=== PATIENT | male | born 1960 | race Caucasian/White ===

== ENCOUNTER 2021-12-06 14:13 | Inpatient (IN) | payer OTHER, SELFPAY ==
[2021-12-06] VITALS (7 sets, daily range): BP systolic 128–143; BP diastolic 69–80; PULSE 82–103; RESP 16–19; TEMP 36.8–38.4; O2SAT 95–98; BMI 25.2
--- NOTE | ~2021-12-06 | CT_ITS ---
EXAMINATION: CT ABDOMEN AND PELVIS WITHOUT CONTRAST CLINICAL INFORMATION: Abnormal liver function tests. Evaluate liver mass. Elevated WBC. COMPARISON: CT chest from 12/06/2021 TECHNIQUE: Multidetector volumetric imaging was performed from the superior aspect of the liver through the pubic symphysis. Sagittal and coronal reformatted images were obtained on the technologist's workstation. This CT examination was performed using dose optimization techniques as appropriate, variously including the following: *Automated exposure control *Adjustment of mA and/or kV according to patient size (this includes techniques or standardized protocols for targeted exams where dose is matched to indication/reason for exam; i.e. extremities or head) *Use of iterative reconstruction technique DLP: 498 mGy-cm FINDINGS: LUNG BASES: Subsegmental atelectasis in the visualized left lower lobe. There are groundglass and patchy opacities in the left lower lobe. Trace left pleural effusion is present. There is mild smooth thickening of interlobular septa in the visualized lung bases. LIVER, GALLBLADDER, AND BILIARY TREE: Liver has normal size and contour. A nonspecific hypodense lesion in the right hepatic lobe measures up to 3.5 cm. In a patient with history of liver function test abnormalities and leukocytosis, a liver abscess would be suspected. A small, 0.5 cm hypodense focus in the central liver likely represents a cyst. No other liver lesions are seen on this examination performed without intravenous contrast. The gallbladder is normal. No dilated bile ducts. PANCREAS: Unremarkable. SPLEEN: Unremarkable. ADRENAL GLANDS: Unremarkable. KIDNEYS AND URETERS: There is excretion of iodinated contrast into the nondilated collecting systems from the recent CT chest angiography examination. Kidneys are normal in size. No renal mass or hydronephrosis. BLADDER: Urinary bladder has normal wall thickness. GASTROINTESTINAL TRACT: Stomach is underdistended. No dilated bowel loops. The appendix is normal. Multiple diverticula of the colon. The subtle haziness of pericolonic fat at the proximal sigmoid colon is too subtle for a confident/definitive diagnosis of acute diverticulitis. Query if there is any left lower quadrant pain. No abdominal free fluid. No pneumoperitoneum. ABDOMINAL WALL: A very small fat-containing umbilical hernia is present. LYMPH NODES: No pathologic sized lymph nodes. VASCULAR: Mild atherosclerosis of the abdominal aorta without aneurysm. PELVIC VISCERA: Prostate gland is mildly enlarged. OSSEOUS STRUCTURES: Multilevel degenerative disc disease of the visualized lower thoracic and lumbar spine with exception of L4-L5. There is L5 spondylolysis with grade 2 anterolisthesis of L5 on S1. CT/CT abdomen pelvis wo con IMPRESSION: * There is atelectasis at lung bases. The groundglass and patchy opacity of left lower lobe (with trace left pleural effusion) are suspicious for pneumonia. * Mild interstitial edema in the visualized lung bases. * Nonspecific 3.5 cm hypodense lesion in the liver is present. Given history of leukocytosis and abnormal liver function tests, a liver abscess is suspected. * There is extensive diverticulosis of the colon. Subtle pericolonic fat stranding is noted at the proximal sigmoid colon. If the patient has left lower abdominal pain, mild acute diverticulitis would be suspected.
--- NOTE | ~2021-12-06 | CT_ITS ---
EXAMINATION: CT ANGIOGRAM OF THE CHEST WITH CONTRAST (CT PULMONARY ANGIOGRAM FOR PE) CLINICAL INFORMATION: Elevated D-dimer test and shortness of breath. COMPARISON: Chest radiograph from 12/06/2021 TECHNIQUE: Prior to contrast administration, noncontrast localization images were obtained. Subsequently, multidetector volumetric imaging was performed from the thoracic inlet to below the diaphragms following the administration of 65 mL Omnipaque 350 intravenous contrast. No contrast reaction reported. Sagittal, coronal, and MIP oblique sagittal reformatted images were obtained on the CT workstation, uploaded to PACS, and reviewed. This CT examination was performed using dose optimization techniques as appropriate, variously including the following: *Automated exposure control *Adjustment of mA and/or kV according to patient size (this includes techniques or standardized protocols for targeted exams where dose is matched to indication/reason for exam; i.e. extremities or head) *Use of iterative reconstruction technique DLP: Total exam dose-length product 335 mGy-cm FINDINGS: LUNGS AND PLEURA: Trachea and central airways are widely patent and normal in caliber. Linear, streaky opacities of atelectasis are present in both lower lobes and in the inferior lingula. The asymmetric groundglass opacity in the left lower lobe is suspicious for pneumonitis, and trace left pleural effusion is present. No pulmonary edema. No pneumothorax. QUALITY OF STUDY/CONTRAST BOLUS: Satisfactory (with main pulmonary artery achieving attenuation of 205 HU) CARDIOVASCULAR: The pulmonary arteries are normal in size. There are no embolic filling defects identified in the main or lobar pulmonary arteries. The more peripheral vessels are difficult to evaluate due to respiratory motion, particularly on images through the lower lobes. Although no emboli are seen, the examination is regarded as limited. The heart size is normal. No pericardial effusion. Thoracic aorta has mild atherosclerotic calcific effusion. No aortic aneurysm or dissection. MEDIASTINUM/LOWER NECK: No mediastinal mass. The thyroid gland is unremarkable. There appears to be a very small sliding-type hiatal hernia of the stomach. LYMPHATICS: No pathologic sized axillary, hilar or mediastinal lymph nodes. UPPER ABDOMEN: No contrast reflux into the inferior vena cava. A nonspecific 3.3 cm hypodense lesion in the right lobe of the liver has central attenuation of 28 Hounsfield units. This is not a simple cyst. Adrenal glands are normal. There are diverticula of the partially visualized colon. Small, 0.4 cm calyceal stone in the upper pole of the left kidney. OSSEOUS STRUCTURES: Multilevel discovertebral degenerative change of the visualized lower cervical, thoracic and upper lumbar spine. There is facet arthropathy, disc degenerative change and 0.5 cm of anterolisthesis of C7 on T1. No suspicious bone lesions. CT/CT angio chest PE protocol IMPRESSION: * Although no pulmonary emboli are seen, the evaluation of peripheral vessels is limited due to respiratory motion on multiple images, particularly those through the lower lobes. * The asymmetric patchy groundglass opacity in the left lower lobe could be caused by atelectasis or infectious pneumonitis. A trace left pleural effusion is present. * Nonspecific 3.3 cm hypodense lesion is present in the right lobe of the liver. Although this could represent hepatic mass, an abscess would be included in the differential in this patient with leukocytosis. MR imaging of the liver without and with IV contrast would be helpful for further characterization.
--- NOTE | ~2021-12-06 | CT_ITS ---
PROCEDURE: CT GUIDED DRAINAGE, LIVER ABSCESS CLINICAL INFORMATION: Liver abscess on recent CT abdomen and MRI abdomen exam. COMPARISON: CT abdomen and pelvis 12/06/2021 and MRI abdomen 12/07/2021. TECHNIQUE: Following explaining CT fluoroscopy-guided right liver abscess, aspiration procedure, benefits and risks, a written consent was obtained. Patient was placed supine on the CT fluoroscopy table and preliminary CT imaging was obtained. An optimal site was selected along the right lateral upper abdomen and marked. The marked site was cleaned and draped in usual sterile manner. 1% lidocaine was injected at the marked site. Through a small skin incision, a 5 Welsh Yueh catheter was advanced from the skin and through the right hepatic lobe into the hypodense collection. On reaching the periphery of the collection, there was sabas aspiration seen. The stylet was withdrawn; however, no aspiration could be performed with a syringe. The stylet was reintroduced and further aspiration was continued through different segments of the hypodensity. After obtaining almost all pus, no more pus could be aspirated, the catheter was withdrawn and complete hemostasis was achieved. No drainage catheter was placed due to projected difficulty in advancing guidewire through the collapsed 5 Welsh sheath. Also by the end of the procedure, the hypodensity in the right hepatic lobe was significantly improved and reduced in size. Complete hemostasis was achieved at the puncture site. Sterile dressing was applied postprocedure. This CT examination was performed using dose optimization techniques as appropriate, variously including the following: *Automated exposure control *Adjustment of mA and/or kV according to patient size (this includes techniques or standardized protocols for targeted exams where dose is matched to indication/reason for exam; i.e. extremities or head) *Use of iterative reconstruction technique 2 mg of IV Versed and 50 mcg of IV fentanyl was advanced during the exam and patient monitored for [address]. [address] imaging, there is a moderate-sized hypodense mass in the right hepatic lobe as described on the prior CT abdomen and MRI abdomen exam. CT fluoroscopy-guided placement of a 5 Welsh Yueh catheter into the abscess. A syringe was attached to the catheter with stylet in place. A syringe was moved in different directions when in the center of the lesion to obtain and drain as much as possible. Postprocedure the needle was withdrawn and complete hemostasis was achieved at the puncture site. Sterile dressing applied postprocedure. Repeat CT imaging was performed. DLP: 396 mGy-cm FINDINGS: On preliminary x-ray imaging, there is no radiopaque calculi seen in the right upper quadrant. CT-guided right hepatic lobe aspiration was performed in a sterile fashion. Approximately 10 mL of pus was collected in 2 test tubes and sent to lab. Post liver aspiration, the right hepatic lobe lesion is smaller. CT/CT guided aspiration liver IMPRESSION: Successful CT fluoroscopy-guided right hepatic lobe abscess aspiration and near-complete drainage.
--- NOTE | ~2021-12-06 | XR_ITS ---
EXAMINATION: XR CHEST CLINICAL INFORMATION: Shortness of breath. COMPARISON: None TECHNIQUE: Portable AP upright view of the chest was obtained. FINDINGS: The cardiac silhouette is not enlarged. There appears to be a small hiatal hernia. The lung volumes are decreased with mild prominence of the central pulmonary vasculature. No Cherelle B-lines or pleural effusions identified. No focal consolidation. Surgical anchors are seen in the left humeral head. XR/XR chest 1V IMPRESSION: Low lung volumes. Possible mild pulmonary edema edema, difficult to evaluate on this exam. No focal consolidation or pleural effusion. Consider follow-up PA and lateral chest radiograph.
--- NOTE | ~2021-12-06 | XR_ITS ---
EXAMINATION: XR CHEST CLINICAL INFORMATION: Suspected pulmonary edema. COMPARISON: None TECHNIQUE: Lateral view of the chest was obtained. Total of 2 images were obtained. FINDINGS: Lateral view only of the chest shows possible subtle airspace disease at right lung base posteriorly. XR/XR chest 1V IMPRESSION: Possible subtle airspace disease at right lung base posteriorly.
--- NOTE | ~2021-12-06 | MR_ITS ---
EXAMINATION: MR ABDOMEN WITHOUT AND WITH CONTRAST CLINICAL INFORMATION: Liver abscess questioned on previous CT COMPARISON: CT dated 12/06/2021 TECHNIQUE: MR abdomen was performed without and with use of 6 mL intravenous Gadavist gadolinium contrast. Postcontrast images are performed in multiphase dynamic sequences. Imaging was performed in 3 planes. FINDINGS: LUNG BASES: Again seen is dependent parenchymal consolidation within left lower lobe, better seen on the prior CT. Trace bilateral pleural effusions. LIVER, GALLBLADDER, AND BILIARY TREE: Liver is normal in size, contour and morphology. As seen on the prior CT, there is a T2 bright peripherally enhancing, centrally nonenhancing structure within hepatic segment 8 measuring 4.2 x 3.8 x 4.0 cm. There is associated thrombus within the right hepatic vein, as well as hepatic veins peripheral to the abnormality within hepatic segments 7 and 8 (see najera images). There is associated perfusional abnormality within the right lobe of liver which demonstrates more patchy enhancement during the hepatic arterial and portal venous phases and more generalized hyperintensity during the delayed phase. There is a 5 mm cyst superior aspect of the caudate. No intra or extrahepatic biliary dilatation. Tiny stone present within the dependent gallbladder. PANCREAS: Unremarkable. SPLEEN: Normal. ADRENAL GLANDS: Normal. KIDNEYS AND URETERS: The kidneys are normal in size, shape, and enhance symmetrically. No hydronephrosis. No perinephric stranding. GASTROINTESTINAL TRACT: No bowel obstruction. No ascites or fluid collection. Diverticulosis coli. ABDOMINAL WALL: No significant hernia is appreciated. LYMPH NODES: No lymphadenopathy. VASCULAR: Patent portal vein. As discussed above, there is bland thrombus within the right hepatic vein leading from the above-described abnormality within the right lobe of liver, as well as lack of enhancement and presumptive thrombosis of hepatic venules peripheral to the abnormality within hepatic segments 7 and 8 OSSEOUS STRUCTURES: Marrow signal normal. MR/MR abdomen wo/w con IMPRESSION: * There is a 4.2 cm peripherally enhancing T2 bright lobulated abnormality within the right lobe of liver suspicious for abscess given the T2 hyperintensity and accompanying thrombus within the right hepatic vein and hepatic venules peripheral to the abnormality. * There is associated perfusional abnormality throughout the right liver likely related to hepatic venous congestion from the aforementioned local hepatic venous thrombus, as well as inflammatory hyperemia.
[2021-12-06] MEDS: Acetaminophen 325 MG TABLET 650 MG PO (14:49)
--- NOTE | 2021-12-06 15:02 | PC.NURSE ---
Unable to attain SpO2 reading on patient in triage. Charge nurse made aware patient brought back to room.
[2021-12-06 15:07] LABS: COVID-19 Test Negative (Negative)
--- NOTE | 2021-12-06 16:04 | ECG_ITS ---
Test Reason : DIZZINESS Blood Pressure : / mmHG Vent. Rate : 093 BPM Atrial Rate : 093 BPM P-R Int : 136 ms QRS Dur : 076 ms QT Int : 330 ms P-R-T Axes : 035 008 002 degrees QTc Int : 410 ms Normal sinus rhythm Normal ECG No previous ECGs available Referred By: Ariadna Gamez Electronically Signed By:ZACK GARZA
[2021-12-06] MEDS: 0.9 % Sodium Chloride 1,000 ML 999 ML IV ×2 (16:17→19:59)
[2021-12-06 16:18] LABS: Appearance Urine CLEAR; Color Urine YELLOW; Glucose Urine UA NEG (NEG); Leukocyte Esterase Urine NEG (NEG); Nitrite Urine NEG (NEG); PH 5.5 (5.0-8.0); Specific Gravity - Urine 1.025 (1.005-1.025); UACC Culture Trigger NO; Urine Blood NEG (NEG); Urine Ketones NEG (NEG); Urine Protein 1+ MG/DL (NEG-TRACE)
[2021-12-06 16:19] LABS: Basophils Absolute Auto 0.1 X10*3/uL (0.0-0.2); Basophils Percent Auto 0.3 % (0-2); Eosinophils Percent Auto 0.1 % (0-4); Hemoglobin 14.5 g/dl (14.0-18.0); Imm Gran Abs Auto 0.16 X10*3/uL (0.00-0.03); Imm Gran Pct Auto 0.9 % (0.0-0.4); Lymphocytes Absolute Auto 0.6 X10*3/uL (1.2-4.9); Lymphocytes Percent Auto 3.1 % (20-40); MANUAL DIFF FLAG SCAN; Mean Corpuscular HGB Conc 34.5 g/dl (31.0-36.0); Mean Corpuscular Hemoglobin 30.3 pg (27.0-33.0); Mean Corpuscular Volume 87.9 fL (80.0-98.0); Mean Platelet Volume 11.3 fL (9.4-12.4); Monocytes Absolute Auto 0.7 X10*3/uL (0.1-1.2); Monocytes Percent Auto 4.1 % (2-11); Neutrophils Absolute Auto 16.5 x10*3/uL (2.0-8.3); Neutrophils Percent Auto 91.5 % (45-73); Platelet Count 216 X10*3/uL (160-400); Red Blood Count 4.78 X10*6/uL (4.60-5.80); Red Cell Distribution Width 13.2 % (11.0-16.0); SCAN SMEAR FLAG 1
--- NOTE | 2021-12-06 16:23 | ED.GENADULT ---
HPI - General Adult General Chief complaint: General Medical <PARTH Garcia Last Filed: 12/06/21 20:02> Stated complaint: Chills/Fever/Weakness <PARTH Garcia Last Filed: 12/06/21 20:02> Time Seen by Provider: 12/06/21 15:25 <PARTH Garcia Last Filed: 12/06/21 20:02> Source: patient <PARTH Garcia Last Filed: 12/06/21 20:02> Mode of arrival: ambulatory <PARTH Garcia Last Filed: 12/06/21 20:02> History of Present Illness HPI narrative: 61-year-old male with no significant past medical history presenting to the ED complaining of lightheadedness, generalized fatigue/weakness, malaise, chills, headache, low-grade fever, SOB x5 days. Reports chest discomfort worse with deep breathing, and decreased p.o. intake. Denies chest pain, abdominal pain, vomiting, diarrhea, pedal edema, recent travel, suspicious food intake, sick contacts <PARTH Garcia Last Filed: 12/06/21 20:02> Onset (ago): day(s) <PARTH Garcia Last Filed: 12/06/21 20:02> Related Data Home medications: Home Medications Medication Instructions Recorded Confirmed atorvastatin 80 mg tablet 80 mg PO DAILY 12/06/21 hydrochlorothiazide 25 mg tablet 25 mg PO DAILY 12/06/21 lisinopril 10 mg tablet 10 mg PO DAILY 12/06/21 tamsulosin 0.4 mg capsule 0.4 mg PO DAILY 12/06/21 <PARTH Garcia Last Filed: 12/06/21 20:02> Allergies/adverse reactions: Allergies Allergy/AdvReac Type Severity Reaction Status Date / Time No Known Allergies Allergy Verified 12/06/21 14:37 <PARTH Garcia Last Filed: 12/06/21 20:02> Review of Systems Review of Systems: Constitutional: +Low grade Fever, + Chills, + Fatigue, + Malaise ENT/Mouth: No Ear Pain, No Nasal Congestion, No Sinus Pain, No Hoarseness, No sore throat, No Rhinorrhea, No Swallowing Difficulty Eyes: No Eye Pain, No Swelling, No Redness Cardiovascular: No Chest Pain, + SOB, No Dyspnea on Exertion, No Orthopnea, No Edema, No Palpitations Respiratory: No Cough, No Sputum, No Dyspnea Gastrointestinal: + Nausea, No Vomiting, No Diarrhea, No Constipation, No Abdominal pain Genitourinary: No Dysuria, No Urinary Frequency, No Hematuria, No Flank Pain, No Urinary Flow Changes Musculoskeletal: No joint pain, + Myalgias, No Joint Swelling Skin: No Skin Lesions, No rash Neuro: +Weakness, No Numbness, No Paresthesias, No Loss of Consciousness, +lightheaded, + Headache <PARTH Garcia - Last Filed: 12/06/21 20:02> Yes all other systems are reviewed and are negative <PARTH Garcia - Last Filed: 12/06/21 20:02> Neurologic: Denies Abnormal speech present <PARTH Garcia - Last Filed: 12/06/21 20:02> FOR[facility], [facility] Past Medical History Attestation statement: The following information was validated with the patient. <PARTH Garcia - Last Filed: 12/06/21 20:02> Social History Social History: Social History Advance Directives: No Advance Directives Information Provided: No <PARTH Garcia - Last Filed: 12/06/21 20:02> Physical Exam ED Vital Signs: Vital Signs - 24 hr 12/06/21 14:35 12/06/21 16:52 12/06/21 16:53 Temperature 98.2 F Pulse Rate 87 95 103 H Respiratory Rate 19 Blood Pressure 143/74 H 140/70 H 128/73 Pulse Oximetry 12/06/21 16:54 12/06/21 19:31 Temperature 101.2 F H Pulse Rate 97 84 Respiratory Rate 16 Blood Pressure 130/69 128/76 Pulse Oximetry 98 BMI result Body Mass Index 25.2 <PARTH Garcia - Last Filed: 12/06/21 20:02> Vital Signs - 24 hr 12/06/21 14:35 12/06/21 16:52 12/06/21 16:53 Temperature 98.2 F Pulse Rate 87 95 103 H Respiratory Rate 19 Blood Pressure 143/74 H 140/70 H 128/73 Pulse Oximetry 12/06/21 16:54 12/06/21 19:31 Temperature 101.2 F H Pulse Rate 97 84 Respiratory Rate 16 Blood Pressure 130/69 128/76 Pulse Oximetry 98 BMI result Body Mass Index 25.2 <Mik Pulido MD - Last Filed: 12/06/21 21:41> Const General: cooperative, healthy appearing, no acute distress, alert and awake <PARTH Garcia - Last Filed: 12/06/21 20:02> Orientation/consciousness: patient oriented x3 <PARTH Garcia - Last Filed: 12/06/21 20:02> Limitations: no limitations <PARTH Garcia - Last Filed: 12/06/21 20:02> HENMT Head: Yes normal to inspection and Yes atraumatic <PARTH Garcia - Last Filed: 12/06/21 20:02> Ears: hearing grossly normal bilaterally <PARTH Garcia - Last Filed: 12/06/21 20:02> General nose exam: Normal external nose present <PARTH Garcia - Last Filed: 12/06/21 20:02> Face and sinus: Yes normal facial exam <PARTH Garcia - Last Filed: 12/06/21 20:02> Throat: Yes posterior oropharynx normal, Yes tonsils normal and Yes uvula midline <PARTH Garcia - Last Filed: 12/06/21 20:02> Eyes General: appearance normal, both eyes and all related structures <PARTH Garcia - Last Filed: 12/06/21 20:02> Pupils: Equal, round and reactive pupils present <PARTH Garcia - Last Filed: 12/06/21 20:02> EOM: EOMs intact bilaterally <PARTH Garcia - Last Filed: 12/06/21 20:02> Neck Neck: Yes normal visual inspection and Yes no meningeal signs <PARTH Garcia - Last Filed: 12/06/21 20:02> Resp Effort & Inspection: normal respiratory effort and no respiratory distress <PARTH Garcia - Last Filed: 12/06/21 20:02> Auscultation: clear to auscultation bilaterally, no rales, no rhonchi and no wheezes <Ariadna Gamez PA - Last Filed: 12/06/21 20:02> Cardio Rate: regular rate <Ariadna Gamez PA - Last Filed: 12/06/21 20:02> Heart sounds: S1 normal heart sound present and S2 normal heart sound present <Ariadna Gamez PA - Last Filed: 12/06/21 20:02> GI Inspection: Yes normal to inspection <Ariadna Gamez PA - Last Filed: 12/06/21 20:02> Palpation (GI): Soft to palpation, nontender, no guarding and not rigid <Ariadna Gamez PA - Last Filed: 12/06/21 20:02> General: Yes no CVA tenderness <Ariadna Gamez PA - Last Filed: 12/06/21 20:02> Back/Spine/Pelvis Back: no CVA tenderness <Ariadna Gamez PA - Last Filed: 12/06/21 20:02> Skin Rashes: no rashes <Ariadna Gamez PA - Last Filed: 12/06/21 20:02> Wounds: no wounds <Ariadna Gamez PA - Last Filed: 12/06/21 20:02> Neuro General: patient oriented x3, gait normal, tone normal, moves all extremities, no meningeal signs, no focal motor deficits and CN's II-XI intact bilaterally <Ariadna Gamez PA - Last Filed: 12/06/21 20:02> Cranial nerves: Yes CN's II-XII intact bilaterally, Yes Equal, round and reactive pupils present and Yes Bilaterally intact EOM present <Ariadna Gamez PA - Last Filed: 12/06/21 20:02> Cognition (Neuro): normal cognition <Ariadna Gamez PA - Last Filed: 12/06/21 20:02> Speech: No Abnormal speech present <Ariadna Gamez PA - Last Filed: 12/06/21 20:02> Gait exam (Neuro): Normal gait present <Ariadna Gamez PA - Last Filed: 12/06/21 20:02> Extrem General: Yes normal to inspection and Yes no pedal edema <PARTH Garcia - Last Filed: 12/06/21 20:02> Course Course Course Narrative: XR chest 1V IMPRESSION: Low lung volumes. Possible mild pulmonary edema edema, difficult to evaluate on this exam. No focal consolidation or pleural effusion. Consider follow-up PA and lateral chest radiograph. > will obtain PA and lateral -COVID negative -1654--leukocytosis of 18.0, BUN of 28 > likely from dehydration, AST/ALT acutely elevated. Alk-phos elevated. Lactic/blood cultures ordered -troponin 9.1 > will obtain through repeat -D-dimer elevated to 812 >> will obtain CTA to r/o PE XR chest 1V IMPRESSION: Possible subtle airspace disease at right lung base posteriorly. >> infection now suspected. Empiric Rocephin/Azithromycin ordered -1948--patient spiked fever to 101.2. IV Toradol ordered -Flagyl added for broader coverage -ED care transferred to Dr. Pulido pending CT results and anticipated admission <PARTH Garcia - Last Filed: 12/06/21 20:02> Medical Decision Making MDM Narrative Medical decision making narrative: 61-year-old male with no significant past medical history presenting to the ED complaining of lightheadedness, generalized fatigue/weakness, malaise, chills, headache, low-grade fever, SOB x5 days. Reports chest discomfort worse with deep breathing, and decreased p.o. intake. On exam vital signs stable, NAD/nontoxic appearing, exam nonfocal, lungs CTA. Concern for viral syndrome/COVID-19 vs metabolic abnormalities vs ?PE vs infectious etiology. Unlikely ACS Plan: EKG, labs, UA, CXR, IVF, orthostatics, re-evaluate Low concern for severe sepsis <PARTH Garcia - Last Filed: 12/06/21 20:02> 61-year-old male with no significant past medical history presenting to the ED complaining of lightheadedness, generalized fatigue/weakness, malaise, chills, headache, low-grade fever, SOB x5 days. Reports chest discomfort worse with deep breathing, and decreased p.o. intake. On exam vital signs stable, NAD/nontoxic appearing, exam nonfocal, lungs CTA. Concern for viral syndrome/COVID-19 vs metabolic abnormalities vs ?PE vs infectious etiology. Unlikely ACS Plan: EKG, labs, UA, CXR, IVF, orthostatics, re-evaluate Low concern for severe sepsis 21:40 patient seen and re-evaluated healthy % with history of hypertension came to the hospital for low-grade fever and chills and dry cough with right-sided lung pain taking a deep breath for last 4 days workup showed leukocytosis pneumonitis in the left side CTA chest negative for PE there is a lesion in the right hepatic lobe about 3 cm etiology not clear possible an abscess patient denies any recent travel no significant abdominal pain will admit patient for IV antibiotics and hydration further evaluation <Mik Pulido MD - Last Filed: 12/06/21 21:41> Medical Records Medical records reviewed: Yes I reviewed the patient's medical records. <PARTH Garcia - Last Filed: 12/06/21 20:02> Lab Data Lab results reviewed: Yes I reviewed the patient's lab results. <PARTH Garcia - Last Filed: 12/06/21 20:02> Result diagrams: : 12/06/21 16:10 12/06/21 16:10 <PARTH Garcia - Last Filed: 12/06/21 20:02> Labs: Lab Results 12/06/21 12/06/21 12/06/21 Range/Units 14:43 16:10 16:10 WBC 18.0 H (4.8-10.8) X10*3/uL RBC 4.78 (4.60-5.80) X10*6/uL Hgb 14.5 (14.0-18.0) g/dl Hct 42.0 (42.0-52.0) % MCV 87.9 (80.0-98.0) fL MCH 30.3 (27.0-33.0) pg MCHC 34.5 (31.0-36.0) g/dl RDW 13.2 (11.0-16.0) % Plt Count 216 (160-400) X10*3/uL MPV 11.3 (9.4-12.4) fL Immature Gran % (Auto) 0.9 H (0.0-0.4) % Neut % (Auto) 91.5 H (45-73) % Lymph % (Auto) 3.1 L (20-40) % [place] % (Auto) 4.1 (2-11) % Eos % (Auto) 0.1 (0-4) % Baso % (Auto) 0.3 (0-2) % Lymph # (Auto) 0.6 L (1.2-4.9) X10*3/uL [place] # (Auto) 0.7 (0.1-1.2) X10*3/uL Eos # (Auto) 0.0 (0.0-0.4) X10*3/uL Baso # (Auto) 0.1 (0.0-0.2) X10*3/uL Abs Immat Gran (auto) 0.16 H (0.00-0.03) X10*3/uL Absolute Neuts (auto) 16.5 H (2.0-8.3) x10*3/uL Absolute Nucleated RBC 0.000 (0.0-0.012) X10*3/uL Nucleated RBC % (auto) 0.0 (0.0-0.2) /100WBC Smear Tech's Comments VERIFIED D-Dimer High Sensitivty NG/ML Sodium 138 (135-145) mmol/L Potassium 3.7 (3.3-5.1) mmol/L Chloride 106 (96-108) mmol/L Carbon Dioxide 18 L (22-29) mmol/L Anion Gap 18 (12-20) BUN 28 H (9-16) mg/dL Creatinine 1.21 (0.5-1.4) mg/dL Estim Creat Clear Calc 52.3 Estimated GFR > 60 Random Glucose 118 H (60-115) mg/dL Lactic Acid (0.5-2.0) mmol/L Calcium 9.0 (8.4-10.2) mg/dL Magnesium 2.3 (1.6-2.6) mg/dL Total Bilirubin 0.9 (0.0-1.0) mg/dL Direct Bilirubin 0.4 (0.0-0.5) mg/dL AST 120 H (5-37) U/L ALT 144 H (0-40) U/L Alkaline Phosphatase 209 H (39-117) U/L Troponin I High Sens (<3.5-35.0) ng/L B-Natriuretic Peptide (<100) pg/mL Total Protein 6.0 L (6.5-8.0) g/dL Albumin 3.3 L (3.5-5.0) g/dL Lipase 10 (8-78) U/L Urine Color Urine Appearance Urine pH (5.0-8.0) Ur Specific [place] (1.005-1.025) Urine Protein (NEG-TRACE) MG/DL Urine Glucose (UA) (NEG) MG/DL Urine Ketones (NEG) MG/DL Urine Blood (NEG) Urine Nitrite (NEG) Ur Leukocyte Esterase (NEG) Urine RBC (0) /HPF Urine WBC (0-4) /HPF Ur Squamous Epith Cells /LPF Amorphous Sediment /LPF Urine Bacteria /LPF Epithelial Casts /LPF Hyaline Casts /LPF Granular Casts /LPF Urine Mucus /LPF COVID-19 (DAYA) Negative (Negative) COVID-19 Clin Com See Note 12/06/21 12/06/21 12/06/21 Range/Units 16:10 16:10 16:10 WBC (4.8-10.8) X10*3/uL RBC (4.60-5.80) X10*6/uL Hgb (14.0-18.0) g/dl Hct (42.0-52.0) % MCV (80.0-98.0) fL MCH (27.0-33.0) pg MCHC (31.0-36.0) g/dl RDW (11.0-16.0) % Plt Count (160-400) X10*3/uL MPV (9.4-12.4) fL Immature Gran % (Auto) (0.0-0.4) % Neut % (Auto) (45-73) % Lymph % (Auto) (20-40) % [place] % (Auto) (2-11) % Eos % (Auto) (0-4) % Baso % (Auto) (0-2) % Lymph # (Auto) (1.2-4.9) X10*3/uL [place] # (Auto) (0.1-1.2) X10*3/uL Eos # (Auto) (0.0-0.4) X10*3/uL Baso # (Auto) (0.0-0.2) X10*3/uL Abs Immat Gran (auto) (0.00-0.03) X10*3/uL Absolute Neuts (auto) (2.0-8.3) x10*3/uL Absolute Nucleated RBC (0.0-0.012) X10*3/uL Nucleated RBC % (auto) (0.0-0.2) /100WBC Smear Tech's Comments D-Dimer High Sensitivty 812 NG/ML Sodium (135-145) mmol/L Potassium (3.3-5.1) mmol/L Chloride (96-108) mmol/L Carbon Dioxide (22-29) mmol/L Anion Gap (12-20) BUN (9-16) mg/dL Creatinine (0.5-1.4) mg/dL Estim Creat Clear Calc Estimated GFR Random Glucose (60-115) mg/dL Lactic Acid (0.5-2.0) mmol/L Calcium (8.4-10.2) mg/dL Magnesium (1.6-2.6) mg/dL Total Bilirubin (0.0-1.0) mg/dL Direct Bilirubin (0.0-0.5) mg/dL AST (5-37) U/L ALT (0-40) U/L Alkaline Phosphatase (39-117) U/L Troponin I High Sens 9.1 (<3.5-35.0) ng/L B-Natriuretic Peptide 26 (<100) pg/mL Total Protein (6.5-8.0) g/dL Albumin (3.5-5.0) g/dL Lipase (8-78) U/L Urine Color YELLOW Urine Appearance CLEAR Urine pH 5.5 (5.0-8.0) Ur Specific [place] 1.025 (1.005-1.025) Urine Protein 1+ H (NEG-TRACE) MG/DL Urine Glucose (UA) NEG (NEG) MG/DL Urine Ketones NEG (NEG) MG/DL Urine Blood NEG (NEG) Urine Nitrite NEG (NEG) Ur Leukocyte Esterase NEG (NEG) Urine RBC 0 (0) /HPF Urine WBC 0-2 (0-4) /HPF Ur Squamous Epith Cells 1+ /LPF Amorphous Sediment 2+ /LPF Urine Bacteria TRACE /LPF Epithelial Casts 1-4 /LPF Hyaline Casts 0-2 /LPF Granular Casts 0-2 /LPF Urine Mucus 1+ /LPF COVID-19 (DAYA) (Negative) COVID-19 Clin Com 12/06/21 12/06/21 Range/Units 17:33 17:33 WBC (4.8-10.8) X10*3/uL RBC (4.60-5.80) X10*6/uL Hgb (14.0-18.0) g/dl Hct (42.0-52.0) % MCV (80.0-98.0) fL MCH (27.0-33.0) pg MCHC (31.0-36.0) g/dl RDW (11.0-16.0) % Plt Count (160-400) X10*3/uL MPV (9.4-12.4) fL Immature Gran % (Auto) (0.0-0.4) % Neut % (Auto) (45-73) % Lymph % (Auto) (20-40) % [place] % (Auto) (2-11) % Eos % (Auto) (0-4) % Baso % (Auto) (0-2) % Lymph # (Auto) (1.2-4.9) X10*3/uL [place] # (Auto) (0.1-1.2) X10*3/uL Eos # (Auto) (0.0-0.4) X10*3/uL Baso # (Auto) (0.0-0.2) X10*3/uL Abs Immat Gran (auto) (0.00-0.03) X10*3/uL Absolute Neuts (auto) (2.0-8.3) x10*3/uL Absolute Nucleated RBC (0.0-0.012) X10*3/uL Nucleated RBC % (auto) (0.0-0.2) /100WBC Smear Tech's Comments D-Dimer High Sensitivty NG/ML Sodium (135-145) mmol/L Potassium (3.3-5.1) mmol/L Chloride (96-108) mmol/L Carbon Dioxide (22-29) mmol/L Anion Gap (12-20) BUN (9-16) mg/dL Creatinine (0.5-1.4) mg/dL Estim Creat Clear Calc Estimated GFR Random Glucose (60-115) mg/dL Lactic Acid 1.8 (0.5-2.0) mmol/L Calcium (8.4-10.2) mg/dL Magnesium (1.6-2.6) mg/dL Total Bilirubin (0.0-1.0) mg/dL Direct Bilirubin (0.0-0.5) mg/dL AST (5-37) U/L ALT (0-40) U/L Alkaline Phosphatase (39-117) U/L Troponin I High Sens 10.0 (<3.5-35.0) ng/L B-Natriuretic Peptide (<100) pg/mL Total Protein (6.5-8.0) g/dL Albumin (3.5-5.0) g/dL Lipase (8-78) U/L Urine Color Urine Appearance Urine pH (5.0-8.0) Ur Specific [place] (1.005-1.025) Urine Protein (NEG-TRACE) MG/DL Urine Glucose (UA) (NEG) MG/DL Urine Ketones (NEG) MG/DL Urine Blood (NEG) Urine Nitrite (NEG) Ur Leukocyte Esterase (NEG) Urine RBC (0) /HPF Urine WBC (0-4) /HPF Ur Squamous Epith Cells /LPF Amorphous Sediment /LPF Urine Bacteria /LPF Epithelial Casts /LPF Hyaline Casts /LPF Granular Casts /LPF Urine Mucus /LPF COVID-19 (DAYA) (Negative) COVID-19 Clin Com <PARTH Garcia - Last Filed: 12/06/21 20:02> Lab Results 12/06/21 12/06/21 12/06/21 Range/Units 14:43 16:10 16:10 WBC 18.0 H (4.8-10.8) X10*3/uL RBC 4.78 (4.60-5.80) X10*6/uL Hgb 14.5 (14.0-18.0) g/dl Hct 42.0 (42.0-52.0) % MCV 87.9 (80.0-98.0) fL MCH 30.3 (27.0-33.0) pg MCHC 34.5 (31.0-36.0) g/dl RDW 13.2 (11.0-16.0) % Plt Count 216 (160-400) X10*3/uL MPV 11.3 (9.4-12.4) fL Immature Gran % (Auto) 0.9 H (0.0-0.4) % Neut % (Auto) 91.5 H (45-73) % Lymph % (Auto) 3.1 L (20-40) % [place] % (Auto) 4.1 (2-11) % Eos % (Auto) 0.1 (0-4) % Baso % (Auto) 0.3 (0-2) % Lymph # (Auto) 0.6 L (1.2-4.9) X10*3/uL [place] # (Auto) 0.7 (0.1-1.2) X10*3/uL Eos # (Auto) 0.0 (0.0-0.4) X10*3/uL Baso # (Auto) 0.1 (0.0-0.2) X10*3/uL Abs Immat Gran (auto) 0.16 H (0.00-0.03) X10*3/uL Absolute Neuts (auto) 16.5 H (2.0-8.3) x10*3/uL Absolute Nucleated RBC 0.000 (0.0-0.012) X10*3/uL Nucleated RBC % (auto) 0.0 (0.0-0.2) /100WBC Smear Tech's Comments VERIFIED D-Dimer High Sensitivty NG/ML Sodium 138 (135-145) mmol/L Potassium 3.7 (3.3-5.1) mmol/L Chloride 106 (96-108) mmol/L Carbon Dioxide 18 L (22-29) mmol/L Anion Gap 18 (12-20) BUN 28 H (9-16) mg/dL Creatinine 1.21 (0.5-1.4) mg/dL Estim Creat Clear Calc 52.3 Estimated GFR > 60 Random Glucose 118 H (60-115) mg/dL Lactic Acid (0.5-2.0) mmol/L Calcium 9.0 (8.4-10.2) mg/dL Magnesium 2.3 (1.6-2.6) mg/dL Total Bilirubin 0.9 (0.0-1.0) mg/dL Direct Bilirubin 0.4 (0.0-0.5) mg/dL AST 120 H (5-37) U/L ALT 144 H (0-40) U/L Alkaline Phosphatase 209 H (39-117) U/L Troponin I High Sens (<3.5-35.0) ng/L B-Natriuretic Peptide (<100) pg/mL Total Protein 6.0 L (6.5-8.0) g/dL Albumin 3.3 L (3.5-5.0) g/dL Lipase 10 (8-78) U/L Urine Color Urine Appearance Urine pH (5.0-8.0) Ur Specific [place] (1.005-1.025) Urine Protein (NEG-TRACE) MG/DL Urine Glucose (UA) (NEG) MG/DL Urine Ketones (NEG) MG/DL Urine Blood (NEG) Urine Nitrite (NEG) Ur Leukocyte Esterase (NEG) Urine RBC (0) /HPF Urine WBC (0-4) /HPF Ur Squamous Epith Cells /LPF Amorphous Sediment /LPF Urine Bacteria /LPF Epithelial Casts /LPF Hyaline Casts /LPF Granular Casts /LPF Urine Mucus /LPF COVID-19 (DAYA) Negative (Negative) COVID-19 Clin Com See Note 12/06/21 12/06/21 12/06/21 Range/Units 16:10 16:10 16:10 WBC (4.8-10.8) X10*3/uL RBC (4.60-5.80) X10*6/uL Hgb (14.0-18.0) g/dl Hct (42.0-52.0) % MCV (80.0-98.0) fL MCH (27.0-33.0) pg MCHC (31.0-36.0) g/dl RDW (11.0-16.0) % Plt Count (160-400) X10*3/uL MPV (9.4-12.4) fL Immature Gran % (Auto) (0.0-0.4) % Neut % (Auto) (45-73) % Lymph % (Auto) (20-40) % [place] % (Auto) (2-11) % Eos % (Auto) (0-4) % Baso % (Auto) (0-2) % Lymph # (Auto) (1.2-4.9) X10*3/uL [place] # (Auto) (0.1-1.2) X10*3/uL Eos # (Auto) (0.0-0.4) X10*3/uL Baso # (Auto) (0.0-0.2) X10*3/uL Abs Immat Gran (auto) (0.00-0.03) X10*3/uL Absolute Neuts (auto) (2.0-8.3) x10*3/uL Absolute Nucleated RBC (0.0-0.012) X10*3/uL Nucleated RBC % (auto) (0.0-0.2) /100WBC Smear Tech's Comments D-Dimer High Sensitivty 812 NG/ML Sodium (135-145) mmol/L Potassium (3.3-5.1) mmol/L Chloride (96-108) mmol/L Carbon Dioxide (22-29) mmol/L Anion Gap (12-20) BUN (9-16) mg/dL Creatinine (0.5-1.4) mg/dL Estim Creat Clear Calc Estimated GFR Random Glucose (60-115) mg/dL Lactic Acid (0.5-2.0) mmol/L Calcium (8.4-10.2) mg/dL Magnesium (1.6-2.6) mg/dL Total Bilirubin (0.0-1.0) mg/dL Direct Bilirubin (0.0-0.5) mg/dL AST (5-37) U/L ALT (0-40) U/L Alkaline Phosphatase (39-117) U/L Troponin I High Sens 9.1 (<3.5-35.0) ng/L B-Natriuretic Peptide 26 (<100) pg/mL Total Protein (6.5-8.0) g/dL Albumin (3.5-5.0) g/dL Lipase (8-78) U/L Urine Color YELLOW Urine Appearance CLEAR Urine pH 5.5 (5.0-8.0) Ur Specific [place] 1.025 (1.005-1.025) Urine Protein 1+ H (NEG-TRACE) MG/DL Urine Glucose (UA) NEG (NEG) MG/DL Urine Ketones NEG (NEG) MG/DL Urine Blood NEG (NEG) Urine Nitrite NEG (NEG) Ur Leukocyte Esterase NEG (NEG) Urine RBC 0 (0) /HPF Urine WBC 0-2 (0-4) /HPF Ur Squamous Epith Cells 1+ /LPF Amorphous Sediment 2+ /LPF Urine Bacteria TRACE /LPF Epithelial Casts 1-4 /LPF Hyaline Casts 0-2 /LPF Granular Casts 0-2 /LPF Urine Mucus 1+ /LPF COVID-19 (DAYA) (Negative) COVID-19 Clin Com 12/06/21 12/06/21 Range/Units 17:33 17:33 WBC (4.8-10.8) X10*3/uL RBC (4.60-5.80) X10*6/uL Hgb (14.0-18.0) g/dl Hct (42.0-52.0) % MCV (80.0-98.0) fL MCH (27.0-33.0) pg MCHC (31.0-36.0) g/dl RDW (11.0-16.0) % Plt Count (160-400) X10*3/uL MPV (9.4-12.4) fL Immature Gran % (Auto) (0.0-0.4) % Neut % (Auto) (45-73) % Lymph % (Auto) (20-40) % [place] % (Auto) (2-11) % Eos % (Auto) (0-4) % Baso % (Auto) (0-2) % Lymph # (Auto) (1.2-4.9) X10*3/uL [place] # (Auto) (0.1-1.2) X10*3/uL Eos # (Auto) (0.0-0.4) X10*3/uL Baso # (Auto) (0.0-0.2) X10*3/uL Abs Immat Gran (auto) (0.00-0.03) X10*3/uL Absolute Neuts (auto) (2.0-8.3) x10*3/uL Absolute Nucleated RBC (0.0-0.012) X10*3/uL Nucleated RBC % (auto) (0.0-0.2) /100WBC Smear Tech's Comments D-Dimer High Sensitivty NG/ML Sodium (135-145) mmol/L Potassium (3.3-5.1) mmol/L Chloride (96-108) mmol/L Carbon Dioxide (22-29) mmol/L Anion Gap (12-20) BUN (9-16) mg/dL Creatinine (0.5-1.4) mg/dL Estim Creat Clear Calc Estimated GFR Random Glucose (60-115) mg/dL Lactic Acid 1.8 (0.5-2.0) mmol/L Calcium (8.4-10.2) mg/dL Magnesium (1.6-2.6) mg/dL Total Bilirubin (0.0-1.0) mg/dL Direct Bilirubin (0.0-0.5) mg/dL AST (5-37) U/L ALT (0-40) U/L Alkaline Phosphatase (39-117) U/L Troponin I High Sens 10.0 (<3.5-35.0) ng/L B-Natriuretic Peptide (<100) pg/mL Total Protein (6.5-8.0) g/dL Albumin (3.5-5.0) g/dL Lipase (8-78) U/L Urine Color Urine Appearance Urine pH (5.0-8.0) Ur Specific [place] (1.005-1.025) Urine Protein (NEG-TRACE) MG/DL Urine Glucose (UA) (NEG) MG/DL Urine Ketones (NEG) MG/DL Urine Blood (NEG) Urine Nitrite (NEG) Ur Leukocyte Esterase (NEG) Urine RBC (0) /HPF Urine WBC (0-4) /HPF Ur Squamous Epith Cells /LPF Amorphous Sediment /LPF Urine Bacteria /LPF Epithelial Casts /LPF Hyaline Casts /LPF Granular Casts /LPF Urine Mucus /LPF COVID-19 ([facility]) (Negative) COVID-19 Clin Com <Mik Pulido MD - Last Filed: 12/06/21 21:41> Discharge Plan Discharge Clinical Impression: Pneumonitis, Lesion of liver, Transaminitis, Fever <PARTH Garcia - Last Filed: 12/06/21 20:02> Patient Disposition: Admitted As Inpatient <PARTH Garcia - Last Filed: 12/06/21 20:02>
[2021-12-06 16:25] LABS: D Dimer High Sensitivity 812 NG/ML
[2021-12-06 16:37] LABS: RBC Urine 0 /HPF (0); WBC Urine 0-2 /HPF (0-4)
[2021-12-06 16:38] LABS: Bacteria Urine TRACE /LPF; Granular Casts Urine 0-2 /LPF; Hyaline Casts Urine 0-2 /LPF; Mucus Urine 1+ /LPF; SLIDE REVIEW VERIFIED; Squamous Epithelial Cell Urine 1+ /LPF
[2021-12-06 16:40] LABS: Amorphous Sediment Urine 2+ /LPF
[2021-12-06 16:41] LABS: Alanine Aminotransferase 144 U/L (0-40); Albumin Level 3.3 g/dL (3.5-5.0); Alkaline Phosphatase 209 U/L (39-117); Anion Gap 18 (12-20); Aspartate Amino Transferase 120 U/L (5-37); Bilirubin Direct 0.4 mg/dL (0.0-0.5); Bilirubin Total 0.9 mg/dL (0.0-1.0); Blood Urea Nitrogen 28 mg/dL (9-16); Carbon Dioxide 18 mmol/L (22-29); Chloride 106 mmol/L (96-108); Creatinine Clr Calc Pharmacy 52.3; Estimated Glomerular Filt Rate > 60; Glucose Random 118 mg/dL (60-115); Magnesium 2.3 mg/dL (1.6-2.6); Potassium 3.7 mmol/L (3.3-5.1); Sodium 138 mmol/L (135-145)
[2021-12-06 16:42] LABS: B Type Natriuretic Peptide 26 pg/mL (<100); Troponin-I High Sensitivity 9.1 ng/L (<3.5-35.0)
[2021-12-06 17:28] LABS: Lipase 10 U/L (8-78)
[2021-12-06] MEDS: iohexoL 350 MG/ML 100 ML INFUS..BTL 65 ML IV (17:30)
[2021-12-06 17:53] LABS: Lactic Acid 1.8 mmol/L (0.5-2.0)
[2021-12-06] MEDS: cefTRIAXone sodium 1 GM in 0.9 % Sodium Chloride 50 ML IV (18:09)
[2021-12-06] MEDS: Azithromycin 500 MG in 0.9 % Sodium Chloride 250 ML 125 MG IV (18:46)
[2021-12-06] MEDS: Ketorolac Tromethamine 15 MG/ML VIAL IVPUSH (19:59)
[2021-12-06] MEDS: metroNIDAZOLE/NS 500 MG/100 ML PIGGYBACK 100 MG IV (21:08)
--- NOTE | 2021-12-06 21:51 | PHA.MEDREC ---
Pharmacy Consult ? Medication Reconciliation Pharmacy has completed the medication reconciliation. Patient fills at [facility] in [place]. Was able to get a list of medications and had nurse confirm with patient.
--- NOTE | 2021-12-06 23:21 | PM.IMHP ---
History of Present Illness Date of Service: 12/06/21 Chief Complaint: weakness, sob, chills this is a 61-year-old male with past medical history of hypertension who presents to the hospital with complaints of chills. Patient reports that about a week ago he started developing significant chills, and progressively worsening generalized weakness. Patient reports that he has been taking Motrin and Tylenol with minimal relief. He did a COVID test at home which came out negative. He has generalized weakness, he has shortness of breath on exertion, some nausea with no vomiting. Loss of appetite. He reports pleuritic chest pain with deep breaths. And reports that when he takes a deep breath he starts coughing with no sputum production. He feels very weak. Denies any urinary symptoms, no diarrhea constipation, no lower extremity edema. Denies any recent travel outside the country, denies history of swimming in open bodies of water. On arrival to the ED patient hemodynamically stable with a temp of 101.2 degrees all otherwise vitals normal Labs are significant for WBC count of 18, BUN of 28, creatinine of 1.2, AST of 120, ALT of 144, alk-phos of 2 9, albumin 3.3, UA negative, Abdomen pelvic CT showed 80 lactase is at lung bases, ground-glass and patchy opacity of the left lower lobe with trace left pleural effusion suspicious for pneumonia. Patient also has mild interstitial edema in the visualized lung bases, he has a nonspecific 3.5 cm hypodense lesion in the liver. Concerning for liver abscess. There is also extensive diverticulosis of the colon with subtle pericolonic fat stranding at the proximal sigmoid colon Concerning for diverticulitis patient started on IV antibiotics will be admitted for further management Review of Systems Review of Systems: Yes all other systems are reviewed and are negative [facility] Medical History (Updated 12/07/21 @ 06:43 by Se Schwartz MD) Hypertension Family History (Updated 12/07/21 @ 06:42 by Se Schwartz MD) Brother Coronary artery disease Surgical History (Updated 12/07/21 @ 06:43 by Se Schwartz MD) No pertinent past surgical history Social History Advance Directives: No Advance Directives Information Provided: No Meds Allergies Allergy/AdvReac Type Severity Reaction Status Date / Time No Known Allergies Allergy Verified 12/06/21 14:37 Active Medications: Current Medications Acetaminophen (Acetaminophen 325 Mg Tablet) 650 mg PO Q6H PRN PRN Reason: Pain, Mild (Pain Scale 1-3) Atorvastatin Calcium (Atorvastatin Calcium 80 Mg Tablet) 80 mg PO DAILY [facility] Docusate Sodium (Docusate Sodium 100 Mg Capsule) 100 mg PO DAILY PRN PRN Reason: Constipation Ceftriaxone Sodium 1 gm/ (Sodium Chloride) 50 mls @ 100 mls/hr IV Q24H FRANDY Azithromycin 500 mg/ Sodium (Chloride) 250 mls @ 125 mls/hr IV Q24H FRANDY Lactated Ringer's (Lr) 1,000 mls @ 100 mls/hr IVCONT .Q10H FRANDY Ondansetron HCl (Ondansetron Hcl 4 Mg/2 Ml Vial) 4 mg IVPUSH Q8H PRN PRN Reason: Nausea and Vomiting Pharmacy Consult (Consult Rx Perform Med Rec) 1 each MISCELLANE ONCE PRN PRN Reason: Consult order Sodium Chloride (0.9 % Sodium Chloride Flush 3 Ml Syringe) 3 ml IVFLUSH QSHIFT [facility] Home Medications Medication Instructions Recorded Confirmed Last Taken Type atorvastatin 80 mg tablet 80 mg PO DAILY 12/06/21 12/06/21 Unknown History hydrochlorothiazide 25 mg tablet 25 mg PO DAILY 12/06/21 12/06/21 Unknown History lisinopril 10 mg tablet 10 mg PO DAILY 12/06/21 12/06/21 Unknown History tamsulosin 0.4 mg capsule 0.4 mg PO DAILY 12/06/21 12/06/21 Unknown History Physical Exam Vital Signs and Narrative: Vital Signs: Last Vital Signs Temp 99.6 F 12/06/21 21:57 Pulse 82 12/06/21 21:57 Resp 16 12/06/21 21:57 BP 132/80 12/06/21 21:57 Pulse Ox 95 12/06/21 21:57 BMI result Body Mass Index 25.2 Const: Other: ill appearing General: cooperative and no acute distress Orientation/consciousness: patient oriented x3 Eyes: General: appearance normal, both eyes and all related structures Pupils: Equal, round and reactive pupils present Resp: Effort & Inspection: normal respiratory effort Auscultation: clear to auscultation bilaterally Cardio: Rate: regular rate Rhythm: regular rhythm GI: Other: abdomen is soft, nontender, no rebound Palpation (GI): Soft to palpation Auscultation: normal bowel sounds Skin: General skin exam: no rashes or lesions noted Neuro: General: patient oriented x3 Cranial nerves: Yes Equal, round and reactive pupils present Cognition (Neuro): normal cognition Extrem: General: Yes normal to inspection and Yes no pedal edema Results Labs CBC and Chem 7: 12/06/21 16:10 12/06/21 16:10 Labs: Laboratory Results - last 24 hr 12/06/21 12/06/21 12/06/21 14:43 16:10 16:10 MCV 87.9 MCH 30.3 MCHC 34.5 RDW 13.2 Plt Count 216 MPV 11.3 Immature Gran % (Auto) 0.9 H Neut % (Auto) 91.5 H Lymph % (Auto) 3.1 L Howell % (Auto) 4.1 Eos % (Auto) 0.1 Baso % (Auto) 0.3 Lymph # (Auto) 0.6 L Howell # (Auto) 0.7 Eos # (Auto) 0.0 Baso # (Auto) 0.1 Abs Immat Gran (auto) 0.16 H Absolute Neuts (auto) 16.5 H Absolute Nucleated RBC 0.000 Nucleated RBC % (auto) 0.0 Smear Tech's Comments VERIFIED D-Dimer High Sensitivty Anion Gap 18 Estim Creat Clear Calc 52.3 Estimated GFR > 60 Random Glucose 118 H Lactic Acid Calcium 9.0 Magnesium 2.3 Total Bilirubin 0.9 Direct Bilirubin 0.4 AST 120 H ALT 144 H Alkaline Phosphatase 209 H B-Natriuretic Peptide Total Protein 6.0 L Albumin 3.3 L Lipase 10 Urine Color Urine Appearance Urine pH Ur Specific [place] Urine Protein Urine Glucose (UA) Urine Ketones Urine Blood Urine Nitrite Ur Leukocyte Esterase Urine RBC Urine WBC Ur Squamous Epith Cells Amorphous Sediment Urine Bacteria Epithelial Casts Hyaline Casts Granular Casts Urine Mucus COVID-19 (DAYA) Negative COVID-19 Clin Com See Note 12/06/21 12/06/21 12/06/21 16:10 16:10 16:10 MCV MCH MCHC RDW Plt Count MPV Immature Gran % (Auto) Neut % (Auto) Lymph % (Auto) Howell % (Auto) Eos % (Auto) Baso % (Auto) Lymph # (Auto) Howell # (Auto) Eos # (Auto) Baso # (Auto) Abs Immat Gran (auto) Absolute Neuts (auto) Absolute Nucleated RBC Nucleated RBC % (auto) Smear Tech's Comments D-Dimer High Sensitivty 812 Anion Gap Estim Creat Clear Calc Estimated GFR Random Glucose Lactic Acid Calcium Magnesium Total Bilirubin Direct Bilirubin AST ALT Alkaline Phosphatase B-Natriuretic Peptide 26 Total Protein Albumin Lipase Urine Color YELLOW Urine Appearance CLEAR Urine pH 5.5 Ur Specific [place] 1.025 Urine Protein 1+ H Urine Glucose (UA) NEG Urine Ketones NEG Urine Blood NEG Urine Nitrite NEG Ur Leukocyte Esterase NEG Urine RBC 0 Urine WBC 0-2 Ur Squamous Epith Cells 1+ Amorphous Sediment 2+ Urine Bacteria TRACE Epithelial Casts 1-4 Hyaline Casts 0-2 Granular Casts 0-2 Urine Mucus 1+ COVID-19 (DAYA) COVID-19 [employer] Com 12/06/21 17:33 MCV MCH MCHC RDW Plt Count MPV Immature Gran % (Auto) Neut % (Auto) Lymph % (Auto) Howell % (Auto) Eos % (Auto) Baso % (Auto) Lymph # (Auto) Howell # (Auto) Eos # (Auto) Baso # (Auto) Abs Immat Gran (auto) Absolute Neuts (auto) Absolute Nucleated RBC Nucleated RBC % (auto) Smear Tech's Comments D-Dimer High Sensitivty Anion Gap Estim Creat Clear Calc Estimated GFR Random Glucose Lactic Acid 1.8 Calcium Magnesium Total Bilirubin Direct Bilirubin AST ALT Alkaline Phosphatase B-Natriuretic Peptide Total Protein Albumin Lipase Urine Color Urine Appearance Urine pH Ur Specific [place] Urine Protein Urine Glucose (UA) Urine Ketones Urine Blood Urine Nitrite Ur Leukocyte Esterase Urine RBC Urine WBC Ur Squamous Epith Cells Amorphous Sediment Urine Bacteria Epithelial Casts Hyaline Casts Granular Casts Urine Mucus COVID-19 (DAYA) COVID-19 Clin Com Imaging Radiologist's Impressions: Impressions Chest X-Ray 12/06/21 15:12 IMPRESSION: Low lung volumes. Possible mild pulmonary edema edema, difficult to evaluate on this exam. No focal consolidation or pleural effusion. Consider follow-up PA and lateral chest radiograph. Chest X-Ray 12/06/21 16:41 IMPRESSION: Possible subtle airspace disease at right lung base posteriorly. Chest CTA 12/06/21 17:32 IMPRESSION: * Although no pulmonary emboli are seen, the evaluation of peripheral vessels is limited due to respiratory motion on multiple images, particularly those through the lower lobes. * The asymmetric patchy groundglass opacity in the left lower lobe could be caused by atelectasis or infectious pneumonitis. A trace left pleural effusion is present. * Nonspecific 3.3 cm hypodense lesion is present in the right lobe of the liver. Although this could represent hepatic mass, an abscess would be included in the differential in this patient with leukocytosis. MR imaging of the liver without and with IV contrast would be helpful for further characterization. Abdomen/Pelvis CT 12/06/21 19:44 IMPRESSION: * There is atelectasis at lung bases. The groundglass and patchy opacity of left lower lobe (with trace left pleural effusion) are suspicious for pneumonia. * Mild interstitial edema in the visualized lung bases. * Nonspecific 3.5 cm hypodense lesion in the liver is present. Given history of leukocytosis and abnormal liver function tests, a liver abscess is suspected. * There is extensive diverticulosis of the colon. Subtle pericolonic fat stranding is noted at the proximal sigmoid colon. If the patient has left lower abdominal pain, mild acute diverticulitis would be suspected. Assessment and Plan (1) Sepsis: Status: Acute (2) Pneumonia: Status: Acute (3) Lesion of liver: Status: Acute Plan this is a 61-year-old male with past medical history of hypertension who presents to the hospital with complaints of chills and generalized weakness found to have sepsis # sepsis - likely secondary to pneumonia versus liver lesions/abscess - patient febrile as well as has leukocytosis, normal lactic acid - CT chest concerning for pneumonia - COVID negative - abdominal CT showing possible liver abscess - at this time will treat with IV antibiotics - IV fluids - follow cultures # pneumonia - evidence of ground-glass opacities on chest is CT as well as abdominal CT - will treat with IV antibiotics - follow cultures - COVID negative, monitor respiratory status # lesion of the liver - likely abscess - will obtain MRI of the abdomen as recommended by Radiology - liver lesion biopsy # mild ROCCO - likely secondary to dehydration - will hold hydrochlorothiazide - follow BMP # hypertension - stable - continue lisinopril DVT prophylaxis: Lovenox Quality Stroke Does the patient have a stroke diagnosis?: No VTE Prior VTE?: No VTE Risk Level:: Medical - moderate - high VTE Device Contraindication: Treatment Not Indicated VTE Drug Contraindication: N/A - Med Ordered
--- NOTE | 2021-12-07 00:05 | PC.NURSE ---
This RN gave report to Dariela ALVAREZ in overflow unit.
[2021-12-07 00:11] LABS: Influenza A PCR NEGATIVE (Negative); Influenza B PCR NEGATIVE (Negative); Resp Syncy Virus RNA Qual PCR NEGATIVE (Negative); SARS COV2 PCR INHOUSE NEGATIVE (Negative)
[2021-12-07] MEDS: Lactated Ringers 1,000 ML 100 ML IVCONT ×3 (00:39→20:46)
[2021-12-07] MEDS: 0.9 % Sodium Chloride Flush 3 ML SYRINGE IVFLUSH ×2 (00:39→16:07)
[2021-12-07] MEDS: Acetaminophen 325 MG TABLET 650 MG PO ×2 (00:54→14:41)
--- NOTE | 2021-12-07 01:40 | PC.NURSE ---
Pt came from the ED to bed # 3 at around midnight, alert and oriented, ambulating independently to BR, denies SOB while at rest but aggravated with persistent cough, VSS, LS dim, tolerating RA, c/o mild lingering headache upon arrival, prn tylenol given, IVF of LR at 100ml/hr.
[2021-12-07 07:47] LABS: Anion Gap 10 (12-20); Blood Urea Nitrogen 25 mg/dL (9-16); Calcium 8.1 mg/dL (8.4-10.2); Carbon Dioxide 25 mmol/L (22-29); Chloride 107 mmol/L (96-108); Creatinine Clr Calc Pharmacy 63.9; Estimated Glomerular Filt Rate > 60; Glucose Random 116 mg/dL (60-115); Potassium 3.4 mmol/L (3.3-5.1); Sodium 139 mmol/L (135-145)
[2021-12-07 08:00] VITALS: BP 130/74; PULSE 72; RESP 16; O2SAT 98
--- NOTE | 2021-12-07 08:10 | HO.PM.IMPN ---
Subjective Subjective Date of Service: 12/07/21 Interval History: pneumonia ,? liver abcess Review of Systems has abd pain Also has some cough Denies any chest pain or nausea or vomiting or fever or chills. Physical Exam Vital Signs: Vital Signs: Last Vital Signs Temp 98.3 F 12/06/21 23:27 Pulse 82 12/06/21 23:27 Resp 16 12/06/21 23:27 BP 138/72 12/06/21 23:27 Pulse Ox 95 12/06/21 23:27 BMI result Body Mass Index 25.2 Appearance: Alert.? Oriented X3.? not in distress.? Eyes: Pupils equal, round and reactive to light.? Sclera nonicteric.? ENT: Pharynx normal.? Moist mucous membranes. cvs: rrr, [id number] , no murmur res: clear to auscultation ,no rhonchii or wheezing abd: no rebound or guarding ,nt, bs present. ext pulses present , no cyanosis ,Gait well balanced well coordinated. neuro: axo3 , nonfocal. Objective Data Active Medications Acetaminophen (Acetaminophen 325 Mg Tablet) 650 mg PO Q6H PRN PRN Reason: Pain, Mild (Pain Scale 1-3) Last Admin: 12/07/21 00:54 Dose: 650 mg Documented by: CHERISE Atorvastatin Calcium (Atorvastatin Calcium 80 Mg Tablet) 80 mg PO DAILY [facility] Docusate Sodium (Docusate Sodium 100 Mg Capsule) 100 mg PO DAILY PRN PRN Reason: Constipation Ceftriaxone Sodium 1 gm/ (Sodium Chloride) 50 mls @ 100 mls/hr IV Q24H [facility] Azithromycin 500 mg/ Sodium (Chloride) 250 mls @ 125 mls/hr IV Q24H [facility] Lactated Ringer's (Lr) 1,000 mls @ 100 mls/hr IVCONT .Q10H [facility] Last Admin: 12/07/21 00:39 Dose: 100 mls/hr Documented by: CHERISE Lisinopril (Lisinopril 10 Mg Tablet) 10 mg PO DAILY [facility]; Protocol Metronidazole (Metronidazole 500 Mg Tablet) 500 mg PO Q8H [facility] Ondansetron HCl (Ondansetron Hcl 4 Mg/2 Ml Vial) 4 mg IVPUSH Q8H PRN PRN Reason: Nausea and Vomiting Pharmacy Consult (Consult Rx Perform Med Rec) 1 each MISCELLANE ONCE PRN PRN Reason: Consult order Sodium Chloride (0.9 % Sodium Chloride Flush 3 Ml Syringe) 3 ml IVFLUSH QSHIFT [facility] Last Admin: 12/07/21 00:39 Dose: 3 ml Documented by: CHERISE Tamsulosin HCl (Tamsulosin Hcl 0.4 Mg Capsule) 0.4 mg PO DAILY [facility] Labs CBC & Chem 7: 12/07/21 07:13 12/07/21 07:13 Labs: Laboratory Results - last 24 hr 12/06/21 12/06/21 12/06/21 14:43 16:10 16:10 MCV 87.9 MCH 30.3 MCHC 34.5 RDW 13.2 Plt Count 216 MPV 11.3 Immature Gran % (Auto) 0.9 H Neut % (Auto) 91.5 H Lymph % (Auto) 3.1 L [place] % (Auto) 4.1 Eos % (Auto) 0.1 Baso % (Auto) 0.3 Lymph # (Auto) 0.6 L [place] # (Auto) 0.7 Eos # (Auto) 0.0 Baso # (Auto) 0.1 Abs Immat Gran (auto) 0.16 H Absolute Neuts (auto) 16.5 H Absolute Nucleated RBC 0.000 Nucleated RBC % (auto) 0.0 Smear Tech's Comments VERIFIED D-Dimer High Sensitivty Anion Gap 18 Estim Creat Clear Calc 52.3 Estimated GFR > 60 Random Glucose 118 H Lactic Acid Calcium 9.0 Magnesium 2.3 Total Bilirubin 0.9 Direct Bilirubin 0.4 AST 120 H ALT 144 H Alkaline Phosphatase 209 H B-Natriuretic Peptide Total Protein 6.0 L Albumin 3.3 L Lipase 10 Urine Color Urine Appearance Urine pH Ur Specific [place] Urine Protein Urine Glucose (UA) Urine Ketones Urine Blood Urine Nitrite Ur Leukocyte Esterase Urine RBC Urine WBC Ur Squamous Epith Cells Amorphous Sediment Urine Bacteria Epithelial Casts Hyaline Casts Granular Casts Urine Mucus COVID-19 (DAYA) Negative COVID-19 Clin Com See Note Influenza Type A (PCR) Influenza Type B (PCR) RSV RNA Qual (PCR) SARS-CoV-2 RNA (RT-PCR) 12/06/21 12/06/21 12/06/21 16:10 16:10 16:10 MCV MCH MCHC RDW Plt Count MPV Immature Gran % (Auto) Neut % (Auto) Lymph % (Auto) [place] % (Auto) Eos % (Auto) Baso % (Auto) Lymph # (Auto) [place] # (Auto) Eos # (Auto) Baso # (Auto) Abs Immat Gran (auto) Absolute Neuts (auto) Absolute Nucleated RBC Nucleated RBC % (auto) Smear Tech's Comments D-Dimer High Sensitivty 812 Anion Gap Estim Creat Clear Calc Estimated GFR Random Glucose Lactic Acid Calcium Magnesium Total Bilirubin Direct Bilirubin AST ALT Alkaline Phosphatase B-Natriuretic Peptide 26 Total Protein Albumin Lipase Urine Color YELLOW Urine Appearance CLEAR Urine pH 5.5 Ur Specific [place] 1.025 Urine Protein 1+ H Urine Glucose (UA) NEG Urine Ketones NEG Urine Blood NEG Urine Nitrite NEG Ur Leukocyte Esterase NEG Urine RBC 0 Urine WBC 0-2 Ur Squamous Epith Cells 1+ Amorphous Sediment 2+ Urine Bacteria TRACE Epithelial Casts 1-4 Hyaline Casts 0-2 Granular Casts 0-2 Urine Mucus 1+ COVID-19 ([facility]A) COVID-19 Clin Com Influenza Type A (PCR) Influenza Type B (PCR) RSV RNA Qual (PCR) SARS-CoV-2 RNA (RT-PCR) 12/06/21 12/06/21 12/07/21 17:33 23:30 07:13 MCV MCH MCHC RDW Plt Count MPV Immature Gran % (Auto) Neut % (Auto) Lymph % (Auto) [place] % (Auto) Eos % (Auto) Baso % (Auto) Lymph # (Auto) [place] # (Auto) Eos # (Auto) Baso # (Auto) Abs Immat Gran (auto) Absolute Neuts (auto) Absolute Nucleated RBC Nucleated RBC % (auto) Smear Tech's Comments D-Dimer High Sensitivty Anion Gap 10 L Estim Creat Clear Calc 63.9 Estimated GFR > 60 Random Glucose 116 H Lactic Acid 1.8 Calcium 8.1 L D Magnesium Total Bilirubin Direct Bilirubin AST ALT Alkaline Phosphatase B-Natriuretic Peptide Total Protein Albumin Lipase Urine Color Urine Appearance Urine pH Ur Specific [place] Urine Protein Urine Glucose (UA) Urine Ketones Urine Blood Urine Nitrite Ur Leukocyte Esterase Urine RBC Urine WBC Ur Squamous Epith Cells Amorphous Sediment Urine Bacteria Epithelial Casts Hyaline Casts Granular Casts Urine Mucus COVID-19 ([facility]A) COVID-19 Clin Com Influenza Type A (PCR) NEGATIVE Influenza Type B (PCR) NEGATIVE RSV RNA Qual (PCR) NEGATIVE SARS-CoV-2 RNA (RT-PCR) NEGATIVE Assessment and Plan (1) Pneumonia: Status: Acute (2) Sepsis: Status: Acute (3) Lesion of liver: Status: Acute Plan ?61-year-old male with past medical history of hypertension who presents to the hospital with complaints of chills and generalized weakness found to have sepsis 1. sepsis-thought to be ? likely secondary to pneumonia versus liver lesions/abscess fever improving as well as has leukocytosis, normal lactic acid blood cultures pending,covid negative, CT chest concerning for pneumonia, abdominal CT showing possible liver abscess continue with IV antibiotics, gentle ? IV fluids 2. lesion of the liver-? likely abscess -? will obtain MRI of the abdomen as recommended by Radiology Gi tawanda foe above. 3.? mild ROCCO-? likely secondary to dehydration imrpoving with hydration hold hydrochlorothiazide -? follow BMP 4.? hypertension -? stable -? continue? lisinopril ?DVT prophylaxis:? Lovenox Quality Stroke Does the patient have a stroke diagnosis?: No VTE Prior VTE?: No VTE Risk Level:: Medical - moderate - high VTE Device Contraindication: Treatment Not Indicated VTE Drug Contraindication: N/A - Med Ordered
[2021-12-07 08:14] LABS: Basophils Percent Auto 0.2 % (0-2); Eosinophils Percent Auto 0.2 % (0-4); Hematocrit 36.9 % (42.0-52.0); Hemoglobin 12.3 g/dl (14.0-18.0); Imm Gran Pct Auto 1.3 % (0.0-0.4); Lymphocytes Percent Auto 6.8 % (20-40); Mean Corpuscular HGB Conc 33.3 g/dl (31.0-36.0); Mean Corpuscular Hemoglobin 29.7 pg (27.0-33.0); Mean Corpuscular Volume 89.1 fL (80.0-98.0); Mean Platelet Volume 11.8 fL (9.4-12.4); Monocytes Percent Auto 10.8 % (2-11); Neutrophils Percent Auto 80.7 % (45-73); Platelet Count 180 X10*3/uL (160-400); Red Blood Count 4.14 X10*6/uL (4.60-5.80); Red Cell Distribution Width 13.5 % (11.0-16.0); White Blood Count 17.1 X10*3/uL (4.8-10.8)
[2021-12-07 08:15] LABS: Imm Gran Abs Auto 0.22 X10*3/uL (0.00-0.03); Lymphocytes Absolute Auto 1.2 X10*3/uL (1.2-4.9); MANUAL DIFF FLAG SCAN; Monocytes Absolute Auto 1.9 X10*3/uL (0.1-1.2); Neutrophils Absolute Auto 13.8 x10*3/uL (2.0-8.3); SCAN SMEAR FLAG 1
[2021-12-07] MEDS: metroNIDAZOLE 500 MG TABLET PO ×3 (08:26→22:27)
[2021-12-07] MEDS: lisinopriL 10 MG TABLET PO (08:26)
[2021-12-07] MEDS: Atorvastatin Calcium 80 MG TABLET PO (08:26)
--- NOTE | 2021-12-07 08:30 | PC.NURSE ---
Pt A&Ox3, LCA, no pain at this time, abd rounded, soft, TTP in R quadrants. +BS, slight jaundice noted to sclera. VS as charted, medicated as per MAR orders with an exception to Atorvastatin in which he takes 40mg PO daily, given proper dose this AM and spoke with pharmacy regarding changing order. Call cisse within reach. Will continue to monitor.
[2021-12-07 08:58] LABS: SLIDE REVIEW VERIFIED
--- NOTE | 2021-12-07 10:19 | PM.GICN ---
History of Present Illness Data of Consult Service Date: 12/07/21 Requesting physician: Angelia Roa Primary Care Provider: Unknown Physician HPI Reason for consult: ABD PAIN/ ? liver abcess 61 YM came to [facility] on 12/06/21 with weakness, shortness of breath and chills: 61-year-old male with past medical history of hypertension who presents to the hospital with complaints of chills.? Patient reports that about a week ago he started developing significant chills, and progressively worsening generalized weakness.? He notes that he has been taking Motrin and Tylenol with minimal relief.? He did a COVID test at home which came out negative.? He has generalized weakness and shortness of breath on exertion, some nausea with no vomiting.? Loss of appetite.? He reports pleuritic chest pain with deep breaths.? And reports that when he takes a deep breath he starts coughing with no sputum production.? He feels very weak.? Denies any urinary symptoms, no diarrhea constipation, no lower extremity edema.? Denies any recent travel outside the country, denies history of swimming in open bodies of water.? On arrival to the ED patient hemodynamically stable with a temp of 101.2 degrees all otherwise vitals normal Labs are significant for WBC count of 18, BUN of 28, creatinine of 1.2, AST of 120, ALT of 144, alk-phos of 2 9, albumin 3.3, UA negative, patient started on IV antibiotics and admitted for further management Patient denies symptoms of abdominal pain, dysphagia. He admits to longstanding heartburn related to diet and does not take any medications. He denies recent change in bowel habits, constipation, diarrhea, black stools or rectal bleeding. Patient denies major cardiac or pulmonary problems, loud snoring or sleep apnea Denies being on chronic anticoagulation. Patient denies smoking and takes alcohol occasionally Patient is and has 2 children. 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 Patient reports having an episode of diverticulitis in 2018, he was admitted and treated with antibiotics at [facility]. He had a colonoscopy at [facility] which per patient did not show any polyps IMAGING STUDIES: 12/06/[address] SCAN SHOWED: *? There is atelectasis at lung bases. The groundglass and patchy opacity of left lower lobe (with trace left pleural effusion) are suspicious for pneumonia. *? Mild interstitial edema in the visualized lung bases. *? Nonspecific 3.5 cm hypodense lesion in the liver is present. Given history of leukocytosis and abnormal liver function tests, a liver abscess is suspected. *? There is extensive diverticulosis of the colon. Subtle pericolonic fat stranding is noted at the proximal sigmoid colon. If the patient has left lower abdominal pain, mild acute diverticulitis would be suspected. 12/07/21 ABD MRI SHOWED: ? There is a 4.2 cm peripherally enhancing T2 bright lobulated abnormality within the right lobe of liver suspicious for abscess given the T2 hyperintensity and accompanying thrombus within the right hepatic vein and hepatic venules peripheral to the abnormality. *? There is associated perfusional abnormality throughout the right liver likely related to hepatic venous congestion from the aforementioned local hepatic venous thrombus, as well as inflammatory hyperemia. Review of Systems Review of Systems: Yes all other systems are reviewed and are negative [facility] Past Medical History Medical History Hypertension Family History Family History Brother Coronary artery disease Surgical History Surgical History No pertinent past surgical history Social History Social History Household Members: Family Housing: House Do you presently have visiting nurse or other home services: No Patient Tobacco Use Status: Never used Tobacco service: Yes Current occupational status: employed Meds Allergies Allergy/AdvReac Type Severity Reaction Status Date / Time No Known Allergies Allergy Verified 12/06/21 14:37 Active Medications: Current Medications Acetaminophen (Acetaminophen 325 Mg Tablet) 650 mg PO Q6H PRN PRN Reason: Pain, Mild (Pain Scale 1-3) Last Admin: 12/07/21 00:54 Dose: 650 mg Documented by: Docusate Sodium (Docusate Sodium 100 Mg Capsule) 100 mg PO DAILY PRN PRN Reason: Constipation Ceftriaxone Sodium 1 gm/ (Sodium Chloride) 50 mls @ 100 mls/hr IV Q24H [facility] Azithromycin 500 mg/ Sodium (Chloride) 250 mls @ 125 mls/hr IV Q24H [facility] Lactated Ringer's (Lr) 1,000 mls @ 100 mls/hr IVCONT .Q10H [facility] Last Admin: 12/07/21 00:39 Dose: 100 mls/hr Documented by: Lisinopril (Lisinopril 10 Mg Tablet) 10 mg PO DAILY [facility]; Protocol Last Admin: 12/07/21 08:26 Dose: 10 mg Documented by: Metronidazole (Metronidazole 500 Mg Tablet) 500 mg PO Q8H [facility] Last Admin: 12/07/21 08:26 Dose: 500 mg Documented by: Ondansetron HCl (Ondansetron Hcl 4 Mg/2 Ml Vial) 4 mg IVPUSH Q8H PRN PRN Reason: Nausea and Vomiting Pharmacy Consult (Consult Rx Perform Med Rec) 1 each MISCELLANE ONCE PRN PRN Reason: Consult order Sodium Chloride (0.9 % Sodium Chloride Flush 3 Ml Syringe) 3 ml IVFLUSH QSHIFT [facility] Last Admin: 12/07/21 08:18 Dose: Not Given Documented by: Tamsulosin HCl (Tamsulosin Hcl 0.4 Mg Capsule) 0.4 mg PO DAILY [facility] Last Admin: 12/07/21 08:18 Dose: Not Given Documented by: Home Medications Medication Instructions Recorded Confirmed Last Taken Type atorvastatin 80 mg tablet 40 mg PO DAILY 12/06/21 12/07/21 Unknown History hydrochlorothiazide 25 mg tablet 25 mg PO DAILY 12/06/21 12/06/21 Unknown History lisinopril 10 mg tablet 10 mg PO DAILY 12/06/21 12/06/21 Unknown History tamsulosin 0.4 mg capsule 0.4 mg PO DAILY 12/06/21 12/06/21 Unknown History Physical Exam Vital Signs: Vital Signs: Last Vital Signs Temp 98.3 F 12/06/21 23:27 Pulse 72 12/07/21 08:00 Resp 16 12/07/21 08:00 BP 130/74 12/07/21 08:00 Pulse Ox 98 12/07/21 08:00 BMI result Body Mass Index 25.2 Const: General: no acute distress and ill appearing Nutritional Appearance: average body habitus Orientation/consciousness: patient oriented x3 Limitations: no limitations HENMT: Head: Yes normal to inspection Ears: hearing grossly normal bilaterally Mouth: Normal oral and palatal mucosa present Eyes: Sclerae: sclerae normal Pupils: Equal, round and reactive pupils present Neck: Neck: Yes normal visual inspection Chest: Chest palpation & inspection: normal inspection of the chest Resp: Effort & Inspection: normal respiratory effort Auscultation: clear to auscultation bilaterally Cardio: Palpation: normal PMI Rate: regular rate Rhythm: regular rhythm Heart sounds: S1 normal heart sound present, S2 normal heart sound present and no murmurs GI: Palpation (GI): Soft to palpation, nontender and No hepatosplenomegaly present Auscultation: normal bowel sounds Rectal Exam - Male: Yes deferred Skin: General skin exam: no rashes or lesions noted Neuro: General: patient oriented x3, gait normal and moves all extremities Cranial nerves: Yes Equal, round and reactive pupils present Psych: Appearance: grossly normal Mental Status: mental status grossly normal Results Labs CBC & Chem 7: 12/12/21 05:33 12/12/21 05:33 Labs: Short CBC 12/06/21 12/07/21 Range/Units 16:10 07:13 WBC 18.0 H 17.1 H (4.8-10.8) X10*3/uL Hgb 14.5 12.3 L (14.0-18.0) g/dl Hct 42.0 36.9 L (42.0-52.0) % Plt Count 216 180 (160-400) X10*3/uL BMP 12/06/21 12/07/21 16:10 07:13 Sodium 138 139 Potassium 3.7 3.4 Chloride 106 107 Carbon Dioxide 18 L 25 BUN 28 H 25 H Creatinine 1.21 0.99 Calcium 9.0 8.1 L D Liver Function 12/06/21 Range/Units 16:10 Total Bilirubin 0.9 (0.0-1.0) mg/dL Direct Bilirubin 0.4 (0.0-0.5) mg/dL AST 120 H (5-37) U/L ALT 144 H (0-40) U/L Alkaline Phosphatase 209 H (39-117) U/L Albumin 3.3 L (3.5-5.0) g/dL Urine 12/06/21 Range/Units 16:10 Urine Color YELLOW Urine Appearance CLEAR Urine pH 5.5 (5.0-8.0) Ur Specific [place] 1.025 (1.005-1.025) Urine Protein 1+ H (NEG-TRACE) MG/DL Urine Glucose (UA) NEG (NEG) MG/DL Assessment and Plan (1) Lesion of liver: Status: Deleted (2) Transaminitis: Status: Deleted Plan 61-year-old male with hypertension admitted to [facility] chills, generalized weakness and pleuritic chest pain with deep breaths.? Pt was diagnosed with pneumonia Labs are significant for WBC count of 18, BUN of 28, creatinine of 1.2, AST of 120, ALT of 144, alk-phos of 2 9, albumin 3.3, Patient reports having an episode of diverticulitis in 2018, he was admitted and treated with antibiotics at [facility]. He had a colonoscopy at [facility] which per patient did not show any polyps Abdominal CT scan showed a 3.5 cm hypodense lesion in the liver suspicious for a liver abscess. Extensive diverticulosis of the colon with subtle pericolonic fat stranding at the proximal sigmoid colon. If the patient has left lower abdominal pain, mild acute diverticulitis would be suspected. Liver abscess is usually associated with intra-abdominal infections (diverticulitis or hepatobiliary disease) Pt may have subclinical diverticulitis or liver abscess due to Klebsiella pneumoniae RECOMMENDATIONS: 1. Agree with IV antibiotics 2. He will need Percutaneous drainage by IR (with C&S) followed by IV antibiotics x 2-3 weeks Once abscess has resolved on FU CT scan then PO antibiotics for another 2-3 weeks 3. ID consult in the am. Procedures Date of Service Date of Service: 12/07/21
--- NOTE | 2021-12-07 12:07 | MHC.CM.PN ---
CM MET WITH PT AND WHO WAS AT BEDSIDE PT LIVES WITH HIS IN [place] BUT WORKS AT [employer] AND STAYS IN [place] WHEN HERE PT DENIES USE OF DME OF SERVICES PT REPORTS HE HAS A PCP IN [place] PT COMPLETED A HCP TODAY NAMING HIS , ANT [place] [phone] HIS AGENT RIGHTS DELIVERED CURRENT DC PLAN IS HOME WITH NO SERVICES TO TRANSPORT PT ALSO [facility] THERE ARE SEVERAL COPAYS WITH [facility] HE PROVIDED TWO ID'S THAT WERE PHOTOCOPIED AND A TASK WAS SENT TO BILLING
--- NOTE | 2021-12-07 15:43 | PHA.PROG ---
Admission Date/Time: December 06, 2021 23:15 Indication: Weight in k.621 kg Adjusted body weight in Kg: [place] body weight in Kg: Obesity Dosing Indication % IBW: Serum Creatinine - Last 168 Hours 12/06/21 12/07/21 16:10 07:13 Creatinine 1.21 0.99 Estimated CrCl and GFR - Last 168 Hours 12/06/21 12/07/21 16:10 07:13 Estim Creat Clear Calc 52.3 63.9 Estimated GFR > 60 > 60 Vancomycin Loading Dose: Current Vancomycin Dosing Regimen: 1500 MG Q24H predicted auc 489 trough of 13 Vancomycin Monitoring using AUC goal of 400 - 600 range with trough as surrogate marker: Date and Time for next Vancomycin Level to be drawn: Pharmacist Comments on Vancomycin Plan: Vancomycin dosing will take advantage of [employer]pol[employer] as a clinical decision support tool that uses Bayesian modeling to calculate individual patient's pharmacokinetic parameters and forecast the patient's drug concentration time course with the target goal AUC 24 range of 400 - 600 mg/L/hr.
[2021-12-07 15:52] LABS: Alanine Aminotransferase 117 U/L (0-40); Albumin Level 2.6 g/dL (3.5-5.0); Alkaline Phosphatase 184 U/L (39-117); Aspartate Amino Transferase 83 U/L (5-37); Bilirubin Direct 0.3 mg/dL (0.0-0.5); Bilirubin Total 0.6 mg/dL (0.0-1.0); Total Protein 4.7 g/dL (6.5-8.0)
[2021-12-07 19:30] VITALS: BMI 27.0
[2021-12-07 19:48] VITALS: BP 135/79; PULSE 66; RESP 17; TEMP 36.8; O2SAT 98
[2021-12-07] MEDS: vancomycin HCL 1,500 MG in 0.9 % Sodium Chloride 500 ML 333.33 MG IV (20:49)
[2021-12-07] MEDS: Azithromycin 500 MG in 0.9 % Sodium Chloride 250 ML 125 MG IV (22:25)
[2021-12-08] VITALS (13 sets, daily range): BP systolic 120–158; BP diastolic 62–91; PULSE 60–89; RESP 16–18; TEMP 36.8–37.6; O2SAT 94–99
[2021-12-08] MEDS: metroNIDAZOLE 500 MG TABLET PO ×3 (06:09→22:44)
[2021-12-08] MEDS: lisinopriL 10 MG TABLET PO (08:13)
--- NOTE | 2021-12-08 09:33 | MHC.CM.PN ---
NURSE ACCOUNTING INTERN NOTE ELECTRONIC MEDICAL RECORD REVIEWED PER DOCUMENTATION PATIENT WITH ADMISSION FOR COMPLAINTS OF CHILLS AND GENERALIZE WEAKNESS (SEPSIS SEC TO PNA VS LIVER LESION/ABSCESS FEVER WITH LEUKPOCYSTOSIS ) PLAN IV FLUIDS, IV ABX, CT OF ABD MRI OF ABD. MONITOR ELECTROLYTES AND RENAL LABS FOLLOW BMP (HOLDING HYDROCHOLORIAUIDE CONTINUE LISINOPRIL AND LOVENOX , DISCHARGE PLAN HOME NO SERVICES TRANSPORTATION HIS PCP PATIENT TO FOLLOW UP FOR POST HOSPITAL DISCHARGE
[2021-12-08 10:32] LABS: INTERNATIONAL NORM RATIO 1.3 (0.9-1.1); Prothrombin Time 14.3 SEC (9.9-13.0)
[2021-12-08 10:36] LABS: Creatinine Clr Calc Pharmacy 72.9; Estimated Glomerular Filt Rate > 60
--- NOTE | 2021-12-08 12:04 | HO.PM.IMPN ---
Subjective Subjective Date of Service: 12/08/21 Interval History: sepsis /pneumonia Review of Systems Patient still has cough, shortness of breath improving Denies any chest pain or nausea vomiting or fever chills. Physical Exam Vital Signs: Vital Signs: Last Vital Signs Temp 98.6 F 12/08/21 11:49 Pulse 64 12/08/21 11:49 Resp 16 12/08/21 11:49 BP 154/85 H 12/08/21 11:49 Pulse Ox 96 12/08/21 11:49 BMI result Body Mass Index 27.0 Appearance: Alert.? Oriented X3.? not in distress.? cvs: rrr, [id number] , no murmur res: air enrty fair slightly diminshed at bases. abd: no rebound or guarding ,nt, bs present. ext pulses present , no cyanosis . neuro: axo3 , nonfocal. Objective Data Active Medications Acetaminophen (Acetaminophen 325 Mg Tablet) 650 mg PO Q6H PRN PRN Reason: Pain, Mild (Pain Scale 1-3) Last Admin: 12/07/21 14:41 Dose: 650 mg Documented by: BRADLY Docusate Sodium (Docusate Sodium 100 Mg Capsule) 100 mg PO DAILY PRN PRN Reason: Constipation Lactated Ringer's (Lr) 1,000 mls @ 100 mls/hr IVCONT .Q10H [facility] Last Infusion: 12/08/21 09:43 Dose: 0 mls/hr Documented by: ONDINA Vancomycin HCl 1,500 mg/ (Sodium Chloride) 500 mls @ 333.333 mls/hr IV Q24H [facility] Last Infusion: 12/07/21 22:27 Dose: 0 mls/hr Documented by: EVIN Azithromycin 500 mg/ Sodium (Chloride) 250 mls @ 125 mls/hr IV Q24H [facility] Last Infusion: 12/08/21 00:30 Dose: 0 mls/hr Documented by: EVIN Lisinopril (Lisinopril 10 Mg Tablet) 10 mg PO DAILY [facility]; Protocol Last Admin: 12/08/21 08:13 Dose: 10 mg Documented by: ONDINA Metronidazole (Metronidazole 500 Mg Tablet) 500 mg PO Q8H [facility] Last Admin: 12/08/21 06:09 Dose: 500 mg Documented by: EVIN Ondansetron HCl (Ondansetron Hcl 4 Mg/2 Ml Vial) 4 mg IVPUSH Q8H PRN PRN Reason: Nausea and Vomiting Pharmacy Consult (Consult Rx Perform Med Rec) 1 each MISCELLANE ONCE PRN PRN Reason: Consult order Pharmacy Consult (Consult Rx Vancomycin Dosing) 1 each MISCELLANE DAILY PRN PRN Reason: Consult order Sodium Chloride (0.9 % Sodium Chloride Flush 3 Ml Syringe) 3 ml IVFLUSH QSHIFT [facility] Last Admin: 12/08/21 08:01 Dose: Not Given Documented by: ONDINA Non-Admin Reason: IV Running Tamsulosin HCl (Tamsulosin Hcl 0.4 Mg Capsule) 0.4 mg PO DAILY [facility] Last Admin: 12/08/21 08:14 Dose: Not Given Documented by: ONDINA Non-Admin Reason: Patient Refused Labs CBC & Chem 7: 12/07/21 07:13 12/08/21 10:07 Labs: Laboratory Results - last 24 hr 12/07/21 12/08/21 12/08/21 07:13 10:07 10:07 PT 14.3 H INR 1.3 H Estim Creat Clear Calc 72.9 Estimated GFR > 60 Total Bilirubin 0.6 Direct Bilirubin 0.3 AST 83 H ALT 117 H Alkaline Phosphatase 184 H Total Protein 4.7 L D Albumin 2.6 L D Microbiology Microbiology Results: Microbiology 12/06/21 18:20 Blood Culture - Preliminary Blood - Venous Prelim: GPC Gram Stain only 12/06/21 17:33 Blood Culture - Preliminary Blood - Venous Prelim: GPC Gram Stain only Assessment and Plan (1) Pneumonia: Status: Acute (2) Sepsis: Status: Acute (3) Lesion of liver: Status: Acute Plan 61-year-old male with past medical history of hypertension who presents to the hospital with complaints of chills and generalized weakness found to have sepsis 1.? sepsis-thought to be ? likely secondary to pneumonia versus liver lesions/abscess ?fever improving as well as has leukocytosis, ?normal lactic acid blood cultures pending,covid negative, CT chest concerning for pneumonia,? abdominal CT showing possible liver abscess continue? with IV antibiotics, gentle ? IV fluids 2. lesion of the liver-? likely abscess -? will obtain MRI of the abdomen as recommended by Radiology- going for IR guided biopsy Gi eval foe above. 3.? mild ROCCO-? likely secondary to dehydration imrpoving with hydration ?hold hydrochlorothiazide -? follow BMP 4.? hypertension -? stable -? continue? lisinopril ?DVT prophylaxis:? Lovenox Quality Stroke Does the patient have a stroke diagnosis?: No VTE Prior VTE?: No VTE Risk Level:: Medical - moderate - high VTE Device Contraindication: Treatment Not Indicated VTE Drug Contraindication: N/A - Med Ordered
[2021-12-08] MEDS: Lactated Ringers 1,000 ML 100 ML IVCONT (14:33)
--- NOTE | 2021-12-08 15:50 | PC.NURSE ---
Pt returned to room via strtecher from procedure. Dressing to right side CDI, no drainage. Pt denies pain. States he just feels tired and lousy. Dr Roa in to see pt. IVF infusing per order
[2021-12-08] MEDS: Acetaminophen 325 MG TABLET 650 MG PO ×2 (16:14→22:50)
[2021-12-08] MEDS: vancomycin HCL 1,500 MG in 0.9 % Sodium Chloride 500 ML 333.33 MG IV (17:56)
[2021-12-08] MEDS: Azithromycin 500 MG in 0.9 % Sodium Chloride 250 ML 125 MG IV (22:44)
[2021-12-09] VITALS (7 sets, daily range): BP systolic 151–174; BP diastolic 79–92; PULSE 58–64; RESP 16–20; TEMP 36.8–37.9; O2SAT 95–96
[2021-12-09] MEDS: Lactated Ringers 1,000 ML 100 ML IVCONT (03:42)
[2021-12-09 06:26] LABS: Creatinine Clr Calc Pharmacy 82.6; Estimated Glomerular Filt Rate > 60
[2021-12-09] MEDS: lisinopriL 10 MG TABLET PO (07:21)
[2021-12-09] MEDS: metroNIDAZOLE 500 MG TABLET PO ×3 (07:21→21:56)
--- NOTE | 2021-12-09 08:14 | HE.PHANOTE ---
VANCOMYCIN DOSING ADDENDUM BASED ON LABS 12/09 DOSES OF 1500 Q 24 CONTINUED. NEXT TROUGH ON 12/10 @ 1600
[2021-12-09] MEDS: amLODIPine Besylate 2.5 MG TABLET PO (11:17)
[2021-12-09 11:32] LABS: Hematocrit 36.7 % (42.0-52.0); Hemoglobin 12.2 g/dl (14.0-18.0); Mean Corpuscular HGB Conc 33.2 g/dl (31.0-36.0); Mean Corpuscular Hemoglobin 29.9 pg (27.0-33.0); Mean Platelet Volume 12.3 fL (9.4-12.4); Platelet Count 225 X10*3/uL (160-400); Red Blood Count 4.08 X10*6/uL (4.60-5.80); Red Cell Distribution Width 13.5 % (11.0-16.0); White Blood Count 17.2 X10*3/uL (4.8-10.8)
[2021-12-09 11:46] LABS: Alanine Aminotransferase 140 U/L (0-40); Albumin Level 2.6 g/dL (3.5-5.0); Alkaline Phosphatase 196 U/L (39-117); Aspartate Amino Transferase 106 U/L (5-37); Bilirubin Direct 0.4 mg/dL (0.0-0.5); Bilirubin Total 0.7 mg/dL (0.0-1.0); Total Protein 4.6 g/dL (6.5-8.0)
[2021-12-09] MEDS: cefTRIAXone sodium 2 GM in 0.9 % Sodium Chloride 50 ML IV (12:40)
--- NOTE | 2021-12-09 12:51 | HO.PM.IMPN ---
Subjective Subjective Date of Service: 12/09/21 Interval History: Possible streptococcal pneumonia and liver abscess. Review of Systems Patient is otherwise feeling better , has mild nausea Denies any vomiting or abdominal pain or fever chills Denies any cough or any weakness or numbness. Physical Exam Vital Signs: Vital Signs: Last Vital Signs Temp 99.2 F 12/09/21 11:02 Pulse 61 12/09/21 11:02 Resp 18 12/09/21 11:02 BP 159/85 H 12/09/21 11:02 Pulse Ox 96 12/09/21 11:02 BMI result Body Mass Index 27.0 Appearance: Alert.? Oriented X3.? not in distress.? cvs: rrr, [id number] , no murmur res: air enrty fair improving. abd: no rebound or guarding ,nt, bs present. ext pulses present , no cyanosis . neuro: axo3 , nonfocal. Objective Data Active Medications Acetaminophen (Acetaminophen 325 Mg Tablet) 650 mg PO Q6H PRN PRN Reason: Pain, Mild (Pain Scale 1-3) Last Admin: 12/08/21 22:50 Dose: 650 mg Documented by: LEE Amlodipine Besylate (Amlodipine Besylate 2.5 Mg Tablet) 2.5 mg PO DAILY [facility]PL[facility]ED BY [facility]; Protocol Last Admin: 12/09/21 11:17 Dose: 2.5 mg Documented by: DAVID Docusate Sodium (Docusate Sodium 100 Mg Capsule) 100 mg PO DAILY PRN PRN Reason: Constipation Ceftriaxone Sodium 2 gm/ (Sodium Chloride) 50 mls @ 100 mls/hr IV Q24H REPLACED BY [facility] Last Admin: 12/09/21 12:40 Dose: 100 mls/hr Documented by: DAVID Lisinopril (Lisinopril 10 Mg Tablet) 10 mg PO DAILY [facility] BY [facility]; Protocol Last Admin: 12/09/21 07:21 Dose: 10 mg Documented by: DAVID Metronidazole (Metronidazole 500 Mg Tablet) 500 mg PO Q8H [facility]PLAC[facility] BY [facility] Last Admin: 12/09/21 07:21 Dose: 500 mg Documented by: DAVID Ondansetron HCl (Ondansetron Hcl 4 Mg/2 Ml Vial) 4 mg IVPUSH Q8H PRN PRN Reason: Nausea and Vomiting Pharmacy Consult (Consult Rx Perform Med Rec) 1 each MISCELLANE ONCE PRN PRN Reason: Consult order Pharmacy Consult (Consult Rx Vancomycin Dosing) 1 each MISCELLANE DAILY PRN PRN Reason: Consult order Sodium Chloride (0.9 % Sodium Chloride Flush 3 Ml Syringe) 3 ml IVFLUSH QSHIFT REPLACED BY [facility] Last Admin: 12/09/21 07:09 Dose: Not Given Documented by: DAVID Non-Admin Reason: IV Running Tamsulosin HCl (Tamsulosin Hcl 0.4 Mg Capsule) 0.4 mg PO DAILY [facility] Last Admin: 12/09/21 07:21 Dose: Not Given Documented by: DAVID Non-Admin Reason: Patient Refused Labs CBC & Chem 7: 12/09/21 05:45 12/09/21 05:45 Labs: Laboratory Results - last 24 hr 12/09/21 12/09/21 12/09/21 05:45 05:45 05:45 MCV 90.0 MCH 29.9 MCHC 33.2 RDW 13.5 Plt Count 225 MPV 12.3 Absolute Nucleated RBC 0.000 Nucleated RBC % (auto) 0.0 Estim Creat Clear Calc 82.6 Estimated GFR > 60 Total Bilirubin 0.7 Direct Bilirubin 0.4 AST 106 H ALT 140 H Alkaline Phosphatase 196 H Total Protein 4.6 L Albumin 2.6 L Microbiology Microbiology Results: Microbiology 12/08/21 11:22 Gram Stain - Final Liver Routine Culture - Preliminary Streptococcus viridans group Anaerobic Culture - Preliminary Culture in progress. 12/06/21 17:33 Blood Culture - Final Blood - Venous Streptococcus const ssp pharyn 12/06/21 18:20 Blood Culture - Final Blood - Venous Streptococcus const ssp pharyn Assessment and Plan (1) Pneumonia: Status: Acute (2) Sepsis: Status: Acute (3) Lesion of liver: Status: Acute Plan 61-year-old male with past medical history of hypertension who presents to the hospital with complaints of chills and generalized weakness found to have sepsis 1.? sepsis-thought to be ? likely secondary to pneumonia versus liver lesions/abscess ?fever improving as well as has leukocytosis, ?normal lactic acid blood cultures pending,covid negative, CT chest concerning for pneumonia,? abdominal CT showing possible liver abscess continue? with IV antibiotics-Id follow for antibiotics and duration, off hydration 2. lesion of the liver-? likely abscess -? will obtain MRI of the abdomen as recommended by Radiology- going for IR guided biopsy [place] thepatient liver biposy- seems streptococcus hold statin for now due to elevated lft's will check lipid panel in am, also check heaptitis profile due to persistent elevated lft's Gi follow up 3.? mild ADELE-? likely secondary to dehydration imrpoved with hydration ?hold hydrochlorothiazide since had mild adele recent -? follow BMP 4.? hypertension: suboptimal -? continue? lisinopril, will add amlodipine ?DVT prophylaxis:? Lovenox Above was discussed with patient in detail length he understand and in agreement with the above plan, staff is aware Quality Stroke Does the patient have a stroke diagnosis?: No VTE Prior VTE?: No VTE Risk Level:: Medical - moderate - high VTE Device Contraindication: Treatment Not Indicated VTE Drug Contraindication: N/A - Med Ordered
--- NOTE | 2021-12-09 14:03 | MHC.CM.PN ---
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 ALSO HE INFORMED ME THAT HE IS NOT ASSOCIATED WOTH THE VNA IN [place] HE IS ACTIVE WITH THE VA IN [place] HE LIVES IN [place] AND JAYCEE WORKS IN [employer] THIS WAS REPORTED TO REGISTRATION, AND TO THE UR NURSE . PER DOCUMENTATION PATIENT WAS ADMITTED FOR :(PNA SEPSIS AND LIVER ABSCESS AWAIITNG CULTURES , CONTINUES WITH PHYSICIANS CURRENT PLAN POSSIBLITY OF NEEDI NG IV ABX . YET TO BE DETERMINED DISCHARGE PLAN ANTICIPATE AT THIS TIME HOME NO SERVICES
[2021-12-09] MEDS: 0.9 % Sodium Chloride Flush 3 ML SYRINGE IVFLUSH (14:49)
--- NOTE | 2021-12-09 15:48 | W.PM.IDCN ---
History of Present Illness Data of Consult Service Date: 12/09/21 Requesting physician: Angelia Roa Primary Care Provider: Unknown Physician HPI Reason for consult: bacteremia He presents with fever and chills for five days. He has headaches and malaise as well. There are no recent dental visits noted. Review of Systems Review of Systems: Yes all other systems are reviewed and are negative PMFSH Past Medical History Medical History Hypertension Family History Family History Brother Coronary artery disease Family history: reviewed and not pertinent Surgical History Surgical History No pertinent past surgical history Social History Social History Household Members: Family Housing: House Do you presently have visiting nurse or other home services: No Patient Tobacco Use Status: Never used Tobacco service: Yes Current occupational status: employed Meds Allergies Allergy/AdvReac Type Severity Reaction Status Date / Time No Known Allergies Allergy Verified 12/06/21 14:37 Active Medications: Current Medications Acetaminophen (Acetaminophen 325 Mg Tablet) 650 mg PO Q6H PRN PRN Reason: Pain, Mild (Pain Scale 1-3) Last Admin: 12/08/21 22:50 Dose: 650 mg Documented by: Amlodipine Besylate (Amlodipine Besylate 2.5 Mg Tablet) 2.5 mg PO DAILY [facility]; Protocol Last Admin: 12/09/21 11:17 Dose: 2.5 mg Documented by: Docusate Sodium (Docusate Sodium 100 Mg Capsule) 100 mg PO DAILY PRN PRN Reason: Constipation Ceftriaxone Sodium 2 gm/ (Sodium Chloride) 50 mls @ 100 mls/hr IV Q24H [facility] Last Infusion: 12/09/21 13:12 Dose: Infused Documented by: Lisinopril (Lisinopril 10 Mg Tablet) 10 mg PO DAILY [facility]; Protocol Last Admin: 12/09/21 07:21 Dose: 10 mg Documented by: Metronidazole (Metronidazole 500 Mg Tablet) 500 mg PO Q8H [facility] Last Admin: 12/09/21 14:47 Dose: 500 mg Documented by: Ondansetron HCl (Ondansetron Hcl 4 Mg/2 Ml Vial) 4 mg IVPUSH Q8H PRN PRN Reason: Nausea and Vomiting Pharmacy Consult (Consult Rx Perform Med Rec) 1 each MISCELLANE ONCE PRN PRN Reason: Consult order Pharmacy Consult (Consult Rx Vancomycin Dosing) 1 each MISCELLANE DAILY PRN PRN Reason: Consult order Sodium Chloride (0.9 % Sodium Chloride Flush 3 Ml Syringe) 3 ml IVFLUSH QSHIFT [facility] Last Admin: 12/09/21 14:49 Dose: 3 ml Documented by: Tamsulosin HCl (Tamsulosin Hcl 0.4 Mg Capsule) 0.4 mg PO DAILY [facility] Last Admin: 12/09/21 07:21 Dose: Not Given Documented by: Home Medications Medication Instructions Recorded Confirmed Last Taken Type atorvastatin 80 mg tablet 40 mg PO DAILY 12/06/21 12/07/21 Unknown History hydrochlorothiazide 25 mg tablet 25 mg PO DAILY 12/06/21 12/06/21 Unknown History lisinopril 10 mg tablet 10 mg PO DAILY 12/06/21 12/06/21 Unknown History tamsulosin 0.4 mg capsule 0.4 mg PO DAILY 12/06/21 12/06/21 Unknown History Physical Exam Vital Signs: Vital Signs: Last Vital Signs Temp 98.2 F 12/09/21 15:21 Pulse 64 12/09/21 15:21 Resp 16 12/09/21 15:21 BP 159/87 H 12/09/21 15:21 Pulse Ox 95 12/09/21 15:21 BMI result Body Mass Index 27.0 Const: General: cooperative HENMT: Head: Yes normal to inspection Mouth: Normal oral and palatal mucosa present Resp: Effort & Inspection: normal respiratory effort Cardio: Rate: regular rate Rhythm: regular rhythm Peripheral pulses: other (2/6 TUSHAR) GI: Inspection: Yes normal to inspection Extrem: General: Yes normal to inspection Results Labs CBC & Chem 7: 12/12/21 05:33 12/12/21 05:33 Labs: Short CBC 12/09/21 Range/Units 05:45 WBC 17.2 H (4.8-10.8) X10*3/uL Hgb 12.2 L (14.0-18.0) g/dl Hct 36.7 L (42.0-52.0) % Plt Count 225 (160-400) X10*3/uL BMP 03/01/22 05:45 Creatinine 0.83 Liver Function 12/09/21 Range/Units 05:45 Total Bilirubin 0.7 (0.0-1.0) mg/dL Direct Bilirubin 0.4 (0.0-0.5) mg/dL AST 106 H (5-37) U/L ALT 140 H (0-40) U/L Alkaline Phosphatase 196 H (39-117) U/L Albumin 2.6 L (3.5-5.0) g/dL Microbiology Microbiology Results: Microbiology 12/08/21 11:22 Liver Gram Stain - Final 12/08/21 11:22 Liver Routine Culture - Preliminary Streptococcus viridans group 12/08/21 11:22 Liver Anaerobic Culture - Preliminary Culture in progress. 12/06/21 17:33 Blood - Venous Blood Culture - Final Streptococcus const ssp pharyn 12/06/21 18:20 Blood - Venous Blood Culture - Final Streptococcus const ssp pharyn Assessment and Plan (1) Pneumonia: Status: Acute (2) Sepsis: Status: Acute He has strep viridans/sanguis He has possible endocarditis. Plan Check echo evaluate above. Ceftriaxone 2 g daily for four weeks.
[2021-12-09] MEDS: Acetaminophen 325 MG TABLET 650 MG PO (17:37)
[2021-12-09] MEDS: Famotidine/PF 20 MG/2 ML VIAL IVPUSH (22:19)
[2021-12-10] VITALS (7 sets, daily range): BP systolic 149–176; BP diastolic 83–90; PULSE 60–76; RESP 14–20; TEMP 36.9–37.4; O2SAT 93–97
[2021-12-10] MEDS: 0.9 % Sodium Chloride Flush 3 ML SYRINGE IVFLUSH ×3 (00:57→15:19)
[2021-12-10 06:07] LABS: Hematocrit 36.6 % (42.0-52.0); Hemoglobin 12.5 g/dl (14.0-18.0); Mean Corpuscular HGB Conc 34.2 g/dl (31.0-36.0); Mean Corpuscular Volume 87.8 fL (80.0-98.0); Mean Platelet Volume 10.9 fL (9.4-12.4); Platelet Count 268 X10*3/uL (160-400); Red Blood Count 4.17 X10*6/uL (4.60-5.80); Red Cell Distribution Width 13.3 % (11.0-16.0); White Blood Count 20.2 X10*3/uL (4.8-10.8)
[2021-12-10] MEDS: metroNIDAZOLE 500 MG TABLET PO (06:17)
[2021-12-10 06:21] LABS: Creatinine Clr Calc Pharmacy 84.6; Estimated Glomerular Filt Rate > 60
[2021-12-10 06:25] LABS: Anion Gap 12 (12-20); Blood Urea Nitrogen 18 mg/dL (9-16); Calcium 8.2 mg/dL (8.4-10.2); Carbon Dioxide 23 mmol/L (22-29); Chloride 109 mmol/L (96-108); Cholesterol 86 mg/dL; Creatinine Clr Calc Pharmacy 85.7; Estimated Glomerular Filt Rate > 60; Glucose Random 81 mg/dL (60-115); HDL Cholesterol 15 mg/dL; LDL Cholesterol Calculated 54 mg/dl; Potassium 3.8 mmol/L (3.3-5.1); Sodium 140 mmol/L (135-145); Triglycerides 85 mg/dL
[2021-12-10 06:40] LABS: HBsAGNum1 0.26 S/CO (0.00-0.99); Hepatitis B Surface Antigen Negative (Negative)
[2021-12-10 06:46] LABS: HBc Num1 0.12 S/CO (0.00-0.79); Hepatitis A Antibody IgM 0.22 Index (0-0.79); Hepatitis B Core Antibody Nonreactive (Nonreactive); ~HepC Num1 0.07 S/CO (0.00-0.79); ~Hepatitis A Antibody IgM Nonreactive (Nonreactive); ~Hepatitis B Surface Antibody REACTIVE (Nonreactive); ~Hepatitis C Antibody Nonreactive (Nonreactive)
[2021-12-10] MEDS: amLODIPine Besylate 2.5 MG TABLET PO (09:02)
[2021-12-10] MEDS: lisinopriL 10 MG TABLET PO (09:05)
--- NOTE | 2021-12-10 10:31 | P.PNIM_ITS ---
Subjective Subjective Date of Service: 12/10/21 Interval History: cc: fever chills interval history: heartburn, improved with pepcid Cardiovascular Cardiovascular: Reports no additional cardiovascular complaints Respiratory Respiratory: Reports no additional respiratory complaints Physical Exam Vital Signs: Vital Signs: Last Vital Signs Temp 98.4 F 12/10/21 07:24 Pulse 63 12/10/21 07:24 Resp 18 12/10/21 07:24 BP 176/88 H 12/10/21 07:24 Pulse Ox 95 12/10/21 07:24 BMI result Body Mass Index 27.0 General: AO X 3, no acute distress Resp: CTA bilateral, no accessory muscles used CVS: S1,S2,RRR GI: soft, non tender, non distended Neuro: motor grossly intact, alert Psych: appropriate affect, appropriate insight Objective Data Active Medications Acetaminophen (Acetaminophen 325 Mg Tablet) 650 mg PO Q6H PRN PRN Reason: Pain, Mild (Pain Scale 1-3) Last Admin: 12/09/21 17:37 Dose: 650 mg Documented by: DAVID Amlodipine Besylate (Amlodipine Besylate 2.5 Mg Tablet) 2.5 mg PO DAILY [facility]; Protocol Last Admin: 12/10/21 09:02 Dose: 2.5 mg Documented by: LISA Docusate Sodium (Docusate Sodium 100 Mg Capsule) 100 mg PO DAILY PRN PRN Reason: Constipation Ceftriaxone Sodium 2 gm/ (Sodium Chloride) 50 mls @ 100 mls/hr IV Q24H [facility] Last Infusion: 12/09/21 13:12 Dose: 0 mls/hr Documented by: DAVID Lisinopril (Lisinopril 10 Mg Tablet) 10 mg PO DAILY [facility]; Protocol Last Admin: 12/10/21 09:05 Dose: 10 mg Documented by: LISA Omeprazole (Omeprazole 40 Mg Capsule.Dr) 40 mg PO DAILY@0630 [facility] Ondansetron HCl (Ondansetron Hcl 4 Mg/2 Ml Vial) 4 mg IVPUSH Q8H PRN PRN Reason: Nausea and Vomiting Pharmacy Consult (Consult Rx Perform Med Rec) 1 each MISCELLANE ONCE PRN PRN Reason: Consult order Pharmacy Consult (Consult Rx Vancomycin Dosing) 1 each MISCELLANE DAILY PRN PRN Reason: Consult order Sodium Chloride (0.9 % Sodium Chloride Flush 3 Ml Syringe) 3 ml IVFLUSH QSHIFT [facility] Last Admin: 12/10/21 07:14 Dose: 3 ml Documented by: WINSTON Tamsulosin HCl (Tamsulosin Hcl 0.4 Mg Capsule) 0.4 mg PO DAILY [facility] Last Admin: 12/10/21 09:06 Dose: Not Given Documented by: LISA Non-Admin Reason: Patient Refused Labs CBC & Chem 7: 12/10/21 05:31 12/10/21 05:31 Labs: Laboratory Results - last 24 hr 12/09/21 12/09/21 12/10/21 05:45 05:45 05:31 MCV 90.0 MCH 29.9 MCHC 33.2 RDW 13.5 Plt Count 225 MPV 12.3 Absolute Nucleated RBC 0.000 Nucleated RBC % (auto) 0.0 Anion Gap Estim Creat Clear Calc 84.6 Estimated GFR > 60 Random Glucose Calcium Total Bilirubin 0.7 Direct Bilirubin 0.4 AST 106 H ALT 140 H Alkaline Phosphatase 196 H Total Protein 4.6 L Albumin 2.6 L Triglycerides Cholesterol LDL Cholesterol, Calc HDL Cholesterol Hepatitis A IgM Ab Hep Bs Antigen Hep Bs Antibody Hep B Core Total Ab Hepatitis C Ab (EIA) 12/10/21 12/10/21 12/10/21 05:31 05:31 05:31 MCV 87.8 MCH 30.0 MCHC 34.2 RDW 13.3 Plt Count 268 MPV 10.9 Absolute Nucleated RBC 0.000 Nucleated RBC % (auto) 0.0 Anion Gap 12 Estim Creat Clear Calc 85.7 Estimated GFR > 60 Random Glucose 81 Calcium 8.2 L Total Bilirubin Direct Bilirubin AST ALT Alkaline Phosphatase Total Protein Albumin Triglycerides 85 Cholesterol 86 LDL Cholesterol, Calc 54 HDL Cholesterol 15 Hepatitis A IgM Ab Nonreactive Hep Bs Antigen Negative Hep Bs Antibody REACTIVE Hep B Core Total Ab Nonreactive Hepatitis C Ab (EIA) Nonreactive Microbiology Microbiology Results: Microbiology 12/08/21 11:22 Gram Stain - Final Liver Routine Culture - Preliminary Streptococcus viridans group Anaerobic Culture - Preliminary Culture in progress. 12/06/21 17:33 Blood Culture - Final Blood - Venous Streptococcus const ssp pharyn 12/06/21 18:20 Blood Culture - Final Blood - Venous Streptococcus const ssp pharyn Assessment and Plan (1) Pneumonia: Status: Acute (2) Sepsis: Status: Acute (3) Lesion of liver: Status: Acute Plan 61-year-old male with past medical history of hypertension who presents to the hospital with complaints of chills and generalized weakness found to have sepsis sepsis Present on admission, secondary to pneumonia complicated by strep viridans bacteremia and liver abscess ceftriaxone 2gm daily follow up repeat cultures follow up echo likely 4 weeks ceftriaxone via picc at home heartburn started ppi adele resolved HTN uncontrolled continue lisinopril, amlodipine 2.5mg daily added, monitor ?DVT prophylaxis:? LovenoPropel IT Quality Stroke Does the patient have a stroke diagnosis?: No VTE Prior VTE?: No VTE Risk Level:: Medical - moderate - high VTE Device Contraindication: Treatment Not Indicated VTE Drug Contraindication: N/A - Med Ordered
[2021-12-10] MEDS: Omeprazole 40 MG CAPSULE.DR PO (11:18)
--- NOTE | 2021-12-10 13:00 | CA_ITS ---
Transthoracic Echocardiogram Patient (Last, First, Middle): Emigdio Zayas, Gender: Male Date of : 1960 Age: 61 Procedure Date: 12/10/2021 Procedure Type: Transthoracic Echocardiogram Location: S3W Height: 162.56 cm Weight: 71.22 kg BSA: 1.76 m2 Heart Rate: bpm BP: 176 / 88 mmHg Ambulance Operations Supervisor: YR/TO Referring MD: Piotr Stevenson MD Symptoms: strep viridans bacteremia Study Quality: Good Conclusions: - Normal left ventricular size, thickness, systolic function, and wall motion. The visually estimated ejection fraction is between 60-65%. - Mildly increased right ventricular cavity size. There is normal right ventricular systolic function. - There is mild aortic valve stenosis. Findings Left Ventricle Normal left ventricular size, thickness, systolic function, and wall motion. The visually estimated ejection fraction is between 60-65%. Diastolic function is normal for age. Right Ventricle Mildly increased right ventricular cavity size. There is normal right ventricular systolic function. Atria Both atria are normal in size. Aortic Valve There is a normal trileaflet aortic valve. There is mild aortic valve stenosis. There is trace (trivial) aortic valve regurgitation. Mitral Valve The mitral valve appears normal. There is no mitral valve regurgitation. There is no mitral valve stenosis. Pulmonic Valve The pulmonic valve is likely normal. Tricuspid Valve Normal tricuspid valve structure and function. There is no tricuspid valve regurgitation. Normal right atrial pressure. There is no evidence of pulmonary hypertension. Great Vessels All visible segments of the aorta are normal in size. The visualized portions of the pulmonary artery and branches are normal. Venous The inferior vena cava is normal in size and collapses greater than 50% with inspiration. Pericardium/Pleural There is no evidence of pericardial effusion. Prior Study Comparison No prior study available for comparison. Measurements 2D Linear Measurements IVSd: 1.07 0.6-0.9/0.6-1.0 cm LVIDd: 4.23 3.9-5.3/4.2-5.9 cm LVIDd Index: 2.40 2.4-3.2/2.2-3.1 cm/m2 LVIDs: 2.47 2.0-3.6 cm LVPWd: 1.05 0.7-1.1 cm LA Diam: 3.70 2.7-3.8/3.0-4.0 cm LAIDs Index: 2.10 1.5-2.3 cm/m2 LV Mass: 187.58 67-162/88-224 g LV Mass Index: 106.58 43-95/49-115 g/m2 LVOT Diam: 2.10 3.0+(-)1.3 cm 2D Systolic Function EF 4C: 69.50 >55% EF 2C: 56.80 >55% EF BiP: 62.30 >55% Mitral Valve MV Pk E: 0.93 MV PK A: 0.50 MV Decel Time: 168.00 E/A: 1.90 E'Lateral: 9.68 E'Medial: 7.29 E/E' Med: 12.80 E/E' Lat: 9.60 PHT: 49.00 MVA PHT: 4.49 Decel Linn: 5.56 Aortic Valve AoV Pk Dwayne: 2.47 AoV Mn Dwayne: 1.59 AoV VTI: 0.43 AoV Pk Grad: 24.00 Aov Mn Grad: 12.00 FÉLIX Cont.VTI: 1.95 LVOT LVOT Pk Dwayne: 1.38 LVOT Mn Dwayne: 0.83 LVOT VTI: 0.25 LVOT Pk Grad: 8.00 LVOT Mn Grad: 3.00 LVOT Diam: 2.10 LVOT Area: 3.46 Diastolic Function MV Pk E: 0.93 MV Pk A: 0.50 E/A: 1.90 E'Medial: 7.29 E/E' Med: 12.80 E' Laterial: 9.68 E/E' Lat: 9.60 Right Ventricle TAPSE (mm): 30.40 TVS' Dwayne: 22.20 Tricuspid Valve TR Pk Dwayne: 2.46 TR Pk Grad: 24.00 RA Press: 3.00 RVSP: 27.00 Great Vessels Aorta Ao Asc: 3.10 2.1-3.4 cm Ao Arch: 3.20 Updated in Other Vendor System with Status of Final Chase Coto MD electronically signed on 12/11/2021 2:01:59 PM with status of Final
[2021-12-10] MEDS: cefTRIAXone sodium 2 GM in 0.9 % Sodium Chloride 50 ML IV (15:18)
[2021-12-11] MEDS: 0.9 % Sodium Chloride Flush 3 ML SYRINGE IVFLUSH ×4 (00:33→20:41)
[2021-12-11 04:00] VITALS: BP 159/83; PULSE 69; RESP 16; TEMP 37.6; O2SAT 92
[2021-12-11] MEDS: Omeprazole 40 MG CAPSULE.DR PO (06:34)
[2021-12-11 06:57] LABS: Hematocrit 36.7 % (42.0-52.0); Hemoglobin 12.4 g/dl (14.0-18.0); Mean Corpuscular HGB Conc 33.8 g/dl (31.0-36.0); Mean Corpuscular Hemoglobin 29.5 pg (27.0-33.0); Mean Corpuscular Volume 87.2 fL (80.0-98.0); Mean Platelet Volume 11.1 fL (9.4-12.4); Platelet Count 312 X10*3/uL (160-400); Red Blood Count 4.21 X10*6/uL (4.60-5.80); Red Cell Distribution Width 13.4 % (11.0-16.0); White Blood Count 19.6 X10*3/uL (4.8-10.8)
[2021-12-11 07:15] LABS: Anion Gap 10 (12-20); Blood Urea Nitrogen 14 mg/dL (9-16); Calcium 8.3 mg/dL (8.4-10.2); Carbon Dioxide 24 mmol/L (22-29); Chloride 109 mmol/L (96-108); Creatinine Clr Calc Pharmacy 79.7; Estimated Glomerular Filt Rate > 60; Glucose Fasting 87 mg/dL (60-99); Potassium 4.1 mmol/L (3.3-5.1); Sodium 139 mmol/L (135-145)
[2021-12-11 07:35] VITALS: BP 165/87; PULSE 76; RESP 18; TEMP 37.6; O2SAT 95
[2021-12-11] MEDS: amLODIPine Besylate 2.5 MG TABLET PO (08:12)
[2021-12-11] MEDS: lisinopriL 10 MG TABLET PO (08:12)
[2021-12-11] MEDS: Acetaminophen 325 MG TABLET 650 MG PO (08:59)
--- NOTE | 2021-12-11 10:12 | HO.PM.IMPN ---
Subjective Subjective Date of Service: 12/11/21 Interval History: cc: chills, fever interval history: heartburn improved, had trouble sleeping last night Cardiovascular Cardiovascular: Reports no additional cardiovascular complaints Respiratory Respiratory: Reports no additional respiratory complaints Physical Exam Vital Signs: Vital Signs: Last Vital Signs Temp 99.6 F 12/11/21 07:35 Pulse 76 12/11/21 07:35 Resp 18 12/11/21 07:35 BP 165/87 H 12/11/21 07:35 Pulse Ox 95 12/11/21 07:35 BMI result Body Mass Index 27.0 General: AO X 3, no acute distress Resp: CTA bilateral, no accessory muscles used CVS: S1,S2,RRR GI: soft, non tender, non distended Neuro: motor grossly intact, alert Psych: appropriate affect, appropriate insight Objective Data Active Medications Acetaminophen (Acetaminophen 325 Mg Tablet) 650 mg PO Q6H PRN PRN Reason: Pain, Mild (Pain Scale 1-3) Last Admin: 12/11/21 08:59 Dose: 650 mg Documented by: MANJIT Amlodipine Besylate (Amlodipine Besylate 2.5 Mg Tablet) 2.5 mg PO DAILY [facility]; Protocol Last Admin: 12/11/21 08:12 Dose: 2.5 mg Documented by: MANJIT Docusate Sodium (Docusate Sodium 100 Mg Capsule) 100 mg PO DAILY PRN PRN Reason: Constipation Ceftriaxone Sodium 2 gm/ (Sodium Chloride) 50 mls @ 100 mls/hr IV Q24H [facility] Last Infusion: 12/10/21 16:28 Dose: 0 mls/hr Documented by: KARIN Lisinopril (Lisinopril 10 Mg Tablet) 10 mg PO DAILY [facility]; Protocol Last Admin: 12/11/21 08:12 Dose: 10 mg Documented by: MANJIT Omeprazole (Omeprazole 40 Mg Capsule.Dr) 40 mg PO DAILY@0630 [facility] Last Admin: 12/11/21 06:34 Dose: 40 mg Documented by: WINSTON Ondansetron HCl (Ondansetron Hcl 4 Mg/2 Ml Vial) 4 mg IVPUSH Q8H PRN PRN Reason: Nausea and Vomiting Pharmacy Consult (Consult Rx Perform Med Rec) 1 each MISCELLANE ONCE PRN PRN Reason: Consult order Pharmacy Consult (Consult Rx Vancomycin Dosing) 1 each MISCELLANE DAILY PRN PRN Reason: Consult order Sodium Chloride (0.9 % Sodium Chloride Flush 3 Ml Syringe) 3 ml IVFLUSH QSHIFT [facility] Last Admin: 12/11/21 08:13 Dose: 3 ml Documented by: MANJIT Tamsulosin HCl (Tamsulosin Hcl 0.4 Mg Capsule) 0.4 mg PO DAILY [facility] Last Admin: 12/11/21 08:13 Dose: Not Given Documented by: MANJIT Non-Admin Reason: Patient Refused Labs CBC & Chem 7: 12/11/21 06:07 12/11/21 06:07 Labs: Laboratory Results - last 24 hr 12/11/21 12/11/21 06:07 06:07 MCV 87.2 MCH 29.5 MCHC 33.8 RDW 13.4 Plt Count 312 MPV 11.1 Absolute Nucleated RBC 0.000 Nucleated RBC % (auto) 0.0 Anion Gap 10 L Estim Creat Clear Calc 79.7 Estimated GFR > 60 Fasting Glucose 87 Calcium 8.3 L Microbiology Microbiology Results: Microbiology 12/08/21 11:22 Gram Stain - Final Liver Routine Culture - Preliminary Streptococcus viridans group Anaerobic Culture - Preliminary Assessment and Plan (1) Pneumonia: Status: Acute (2) Sepsis: Status: Acute (3) Lesion of liver: Status: Deleted Plan 61-year-old male with past medical history of hypertension who presents to the hospital with complaints of chills and generalized weakness found to have sepsis sepsis Present on admission, secondary to pneumonia complicated by strep viridans bacteremia and liver abscess ceftriaxone 2gm daily follow up repeat cultures from 12/10/21 follow up echo report likely 4 weeks ceftriaxone via picc at home heartburn started ppi adele resolved HTN uncontrolled continue lisinopril, amlodipine increased to 5mg daily, monitor ?DVT prophylaxis:? Lovenox reason for continued hospitalization: awaiting clearance of blood cultures to place picc. Quality Stroke Does the patient have a stroke diagnosis?: No VTE Prior VTE?: No VTE Risk Level:: Medical - moderate - high VTE Device Contraindication: Treatment Not Indicated VTE Drug Contraindication: N/A - Med Ordered
--- NOTE | 2021-12-11 11:54 | MHC.CM.PN ---
Addendum entered by Noemi Moy RN 12/11/21 12:13: CM WAS GIVEN THE NUMBER FOR PT'S LOCAL [facility] [phone] EXT [phone], CM HAS LEFT A MESSAGE FOR [facility] CALL BACK INFO. [facility] IN CM OFFICE AND WILL MEET W/PT AND FOR TEACH TODAY. Original Note: EMR REVIEWED, PER HOSPITALIST PT WILL NEED 4WKS IV CEFTRIAXONE 2GM DAILY X4 WKS, CM MET W/PT WHO VERIFIED PCP IS PETER HERRMANN W/[facility], CM SENT REFERRALS TO 5 LOCAL VNAS FOR PT AND PER [facility] THEY DO COVERS PT'S LOCATION AND WILL DO TEACH WITH PT WHILE HERE IN HOSPITAL TODAY. CM TO ATTEMPTING TO CONTACT [facility] [phone] FOR PLACEMENT
[2021-12-11 12:00] VITALS: BP 135/88; PULSE 90; RESP 18; TEMP 37.3; O2SAT 96
[2021-12-11] MEDS: cefTRIAXone sodium 2 GM in 0.9 % Sodium Chloride 50 ML IV (13:14)
--- NOTE | 2021-12-11 13:51 | MHC.CM.PN ---
H&P, ID NOTE AND ADDITIONAL DOCUMENTATION FAXED TO VANIA MENDEZ [phone] AT 1:52PM, SERVICES NEEDED INCLUDING [facility] AND [facility] NOTED ON FAX COVER SHEET.
[2021-12-11 15:37] VITALS: BP 152/81; PULSE 81; RESP 18; TEMP 37.3; O2SAT 96
[2021-12-11 19:47] VITALS: BP 142/81; PULSE 86; RESP 17; TEMP 37.6; O2SAT 94
[2021-12-11 23:58] VITALS: BP 143/74; PULSE 72; RESP 16; TEMP 37.4; O2SAT 94
[2021-12-12 03:58] VITALS: BP 144/77; PULSE 74; RESP 18; TEMP 37.2; O2SAT 93
[2021-12-12] MEDS: Omeprazole 40 MG CAPSULE.DR PO (05:33)
[2021-12-12 05:53] LABS: Hematocrit 36.1 % (42.0-52.0); Mean Corpuscular HGB Conc 33.2 g/dl (31.0-36.0); Mean Corpuscular Hemoglobin 29.4 pg (27.0-33.0); Mean Corpuscular Volume 88.5 fL (80.0-98.0); Mean Platelet Volume 10.3 fL (9.4-12.4); Platelet Count 328 X10*3/uL (160-400); Red Blood Count 4.08 X10*6/uL (4.60-5.80); Red Cell Distribution Width 13.4 % (11.0-16.0)
[2021-12-12 07:01] LABS: Anion Gap 8 (12-20); Blood Urea Nitrogen 17 mg/dL (9-16); Calcium 8.4 mg/dL (8.4-10.2); Carbon Dioxide 26 mmol/L (22-29); Chloride 107 mmol/L (96-108); Creatinine Clr Calc Pharmacy 82.6; Estimated Glomerular Filt Rate > 60; Glucose Fasting 95 mg/dL (60-99); Potassium 4.4 mmol/L (3.3-5.1); Sodium 137 mmol/L (135-145)
[2021-12-12 07:31] VITALS: BP 148/80; PULSE 76; RESP 18; TEMP 37.5; O2SAT 94
--- NOTE | 2021-12-12 09:13 | P.DS_ITS ---
DS: Providers Provider Date of Service: 12/12/21 Date of admission: 12/06/21 23:15 Primary care physician: Unknown Physician Consults: 12/07/21 08:08 Consult to Gastroenterology Routine Consulting Provider: [facility] Reason for consultation: ABD PAIN/ ch abdomen ? liver abcess Has provider been notified: No 12/07/21 15:32 Consult to Infectious Diseases Routine Consulting Provider: Thais Hand Reason for consultation: bacteremia Has provider been notified: No DS: Diagnosis Discharge Diagnosis (1) Pneumonia: Status: Acute (2) Sepsis: Status: Acute DS: Summary Hospital Course Hospital Course: from initial hpi: Chief Complaint: weakness, sob, chills ?this is a 61-year-old male with past medical history of hypertension who presents to the hospital with complaints of chills.? Patient reports that about a week ago he started developing significant chills, and progressively worsening generalized weakness.? Patient reports that he has been taking Motrin and Tylenol with minimal relief.? He did a COVID test at home which came out negative.? He has generalized weakness, he has shortness of breath on exertion, some nausea with no vomiting.? Loss of appetite.? He reports pleuritic chest pain with deep breaths.? And reports that when he takes a deep breath he starts coughing with no sputum production.? He feels very weak.? Denies any urinary symptoms, no diarrhea constipation, no lower extremity edema.? Denies any recent travel outside the country, denies history of swimming in open bodies of water.? On arrival to the ED patient hemodynamically stable with a temp of 101.2 degrees all otherwise vitals normal Labs are significant for WBC count of 18, BUN of 28, creatinine of 1.2, AST of 120, ALT of 144, alk-phos of 2 9, albumin 3.3, UA negative, Abdomen pelvic CT showed 80 lactase is at lung bases, ground-glass and patchy opacity of the left lower lobe with trace left pleural effusion suspicious for pneumonia.? Patient also has mild interstitial edema in the visualized lung bases, he has a nonspecific 3.5 cm hypodense lesion in the liver.? Concerning for liver abscess.? There is also extensive diverticulosis of the colon with subtle pericolonic fat stranding at the proximal sigmoid colon ? Concerning for diverticulitis ?patient started on IV antibiotics will be admitted for further management hospital course: Patient was admitted for sepsis secondary to gram-positive bacterial left lower lobe pneumonia complicated by strep viridans group bacteremia (strep constellatus) and liver abscess with strep viridans (growing after liver aspiratoin). patient was treated with ceftriaxone 2gm daily. echo showed no vegetation. repeat cultures from 12/10/21 have no growth to date. plan is for 4 weeks ceftriaxone via picc at home, end january 06, 2022. repeat ct abd in 3 weeks, monitor labs weekly. patient had been complaining of heartburn, he will be started on ppi. patient has history of htn, his blood pressure was not well controlled on lisinopril. initially amlodipine added while in hospital, but will continue with just home hctz and lisinopril at discharge, should monitor bps and follow up with pcp if any adjustement needed. patient had a mild prerenal ROCCO on admission - creatinine 1.21, it is about 0.8 at discharge. Time Spent with Patient Time attestation: Total time spent providing and/or coordinating discharge services: Discharge coordination time: Greater than 30 minutes Quality: Stroke Does the patient have a stroke diagnosis?: No Physical Exam Vital Signs: Vital Signs: Last Vital Signs Temp 99.5 F 12/12/21 07:31 Pulse 76 12/12/21 07:31 Resp 18 12/12/21 07:31 BP 148/80 H 12/12/21 07:31 Pulse Ox 94 12/12/21 07:31 BMI result Body Mass Index 27.0 General: AO X 3, no acute distress Resp: CTA bilateral, no accessory muscles used CVS: S1,S2,RRR GI: soft, non tender, non distended Neuro: motor grossly intact, alert Psych: appropriate affect, appropriate insight DS: Data Data Completed and Pending Labs on day of discharge: Laboratory Results - last 24 hr 12/12/21 12/12/21 05:33 05:33 WBC 18.0 H RBC 4.08 L Hgb 12.0 L Hct 36.1 L MCV 88.5 MCH 29.4 MCHC 33.2 RDW 13.4 Plt Count 328 MPV 10.3 Absolute Nucleated RBC 0.000 Nucleated RBC % (auto) 0.0 Sodium 137 Potassium 4.4 Chloride 107 Carbon Dioxide 26 Anion Gap 8 L BUN 17 H Creatinine 0.83 Estim Creat Clear Calc 82.6 Estimated GFR > 60 Fasting Glucose 95 Calcium 8.4 Preliminary micro results at discharge 12/10/21 10:45 Blood Culture - Preliminary Blood - Venous No growth after 24 hours. 12/10/21 10:30 Blood Culture - Preliminary Blood - Venous No growth after 24 hours. 12/08/21 11:22 Routine Culture - Preliminary Liver Streptococcus viridans group Anaerobic Culture - Preliminary Discharge Plan Discharge Patient Disposition: Home Health Service Discharge Diagnosis: sepsis, strep viridans bactremia Referrals: [facility] [Other] - 1 Day ([facility] WILL DELIVER ANTIBIOTIC AND PROVIDE A WEEKLY NURSE FOR PICC LINE DRESSING CHANGES AND WEEKLY LABS. START OF CARE WILL BE TOMORROW 12/13 AROUND 1PM. A NURSE FROM [facility] WILL CONTACT YOU TO ARRANGE TIME. ) Thais Hand MD [Physician] - 1 Week Physician,Pato J [Primary Care Provider] - 1 Week Discharge Medications: New omeprazole 40 mg Capsule,Delayed Release(Dr/Ec) 40 mg PO DAILY@0630 Qty: 30 0RF ceftriaxone 2 gram Recon Soln 2 g IV Q24H 25 Days 0RF Continued atorvastatin 80 mg Tablet 40 mg PO DAILY 0RF tamsulosin 0.4 mg Capsule 0.4 mg PO DAILY 0RF lisinopril 10 mg Tablet 10 mg PO DAILY 0RF hydrochlorothiazide 25 mg Tablet 25 mg PO DAILY 0RF Discharge Orders: Discharge Order (Routine); Ordered 12/12/21 Ordered By: Piotr Stevenson Diet: advance to usual diet Activity on Discharge: As tolerated Stand Alone Forms: Patient Portal Discharge page Care Plan Goals: recovery Health Concerns: strep viridans bacteremia Plan of Treatment: 4 weeks ceftriaxone - end january 06, 2022, follow up ct abd in 3 weeks, monitor cbc, bmp weekly while on abx, prilosec for heartburn, follow up with gi Assessment: see above
--- NOTE | 2021-12-12 10:18 | MHC.CM.PN ---
EMR REVIEWED, CM ATTEMPTED TO CONTACT [facility] AT 10:15AM [phone] TO VERIFY THEY RECEIVED REFFERAL AND DISCUSS PT'S NEEDS, PT SHOULD BE READY FOR D/C ONCE PICC LINE IS IN HOWEVER IF WE DO NOT RECEIVE AUTH PRIOR TO D/C PT WILL LIKELY REMAIN INPT THROUGH WEDNESDAY THE [facility] DOESN[facility]T PROVIDE AUTH ON W/E'S. PT HAD TEACH W/[facility] YESTERDAY 12/11 AND DID VERY WELL AND WILL HAVE NO ISSUES SELF ADMINISTERING. D/C PLAN: HOME W/[facility] FOR IV ABX, PT'S FOR TRANSPORT.
[2021-12-12] MEDS: amLODIPine Besylate 5 MG TABLET PO (10:34)
[2021-12-12] MEDS: lisinopriL 10 MG TABLET PO (10:35)
[2021-12-12] MEDS: 0.9 % Sodium Chloride Flush 3 ML SYRINGE IVFLUSH (10:35)
[2021-12-12 12:00] VITALS: RESP 18
--- NOTE | 2021-12-12 12:25 | MHC.CM.PN ---
PT DISCHARGING HOME LATER TODAY, [facility] WILL HAVE [facility] FOR [facility] AND THEY WILL PROVIDE A WEEKLY NURSE FOR PICC LINE DRESSING CHANGES AND WEEKLY LABS, SOC 12/13/21, PT'S FOR TRANSPORT,
--- NOTE | 2021-12-12 13:04 | P.PICC_ITS ---
PICC Line Insertion NPICC Diagnosis: BACTEREMIA Indication: CONSERVATION OR HERITAGE ARCHITECT IV ANTIBIOTICS Pertinent Labs: REVIEWED Technique: Following informed consent including risks, benefits and alternatives and using sterile technique including cap and mask, sterile gown, glove and drape, the RIGHT arm was prepped and draped in the usual sterile fashion of full barrier technique with CHG. Following completion of [place] Protocol the skin and soft tissues were anesthetized with 1% Lidocaine plain. Using ultrasound guidance, BASILIC vein access was obtained IN SINGLE ATTEMPT BY THIS RN. Over an 0.018 wire through peel-away sheath, a 4-HONG KONGER, SINGLE LUMEN, PASV PICC line was positioned. Catheter length is 38 CM internal length, 0 CM external length, for a total trimmed length of 38 CM. The procedure was performed in S-272. Tip verification was performed by Silvana Sarabia with Precious 3CG. Tip located in SVC. Ultrasound was used to document vein patency and for needle entry. A formal ultrasound picture and cardiac rhythm strip was recorded. Vascular Sewing Supervisor has released the line for use and it is currently dressed with a StatLock, Tegaderm, and CHG disc. Verification has been performed for blood return and line patency. Arm Circumference: 31 CM Equipment: [employer] POWERPICC SOLO Catheter Type: 4-HONG KONGER, SINGLE LUMEN, PASV Lot #: [id number]
[2021-12-12] MEDS: cefTRIAXone sodium 2 GM in 0.9 % Sodium Chloride 50 ML IV (14:33)
--- NOTE | 2021-12-12 15:27 | MHC.CM.PN ---
CM CONTACTED LAMBERTO DANIEL AT [facility] 3:15PM [phone] TO CONFIRM ABX WILL BE DELIVERED TOMORROW AND [facility] NURSE WILL DO SOC AROUND 2PM, LAMBERTO CONFIRMED EVERYTHING WAS ALL SET FOR ABX DELIVERY AND SOC FOR TOMORROW 12/13/21. PT & AWARE OF CHANGE OF INFUSION COMPANY/SERIVICES.
--- NOTE | 2021-12-13 08:15 | MHC.CM.PN ---
POST DISCHARGE NOTE - PICC LINE REPORT, DC SUMMARY, AND DC PACKET FAXED TO [phone] PER REQUEST OF PATIENT'S VNA. VNA IS STARTING CARE AND TEACHING THIS MORNING (12/13/21).
== END 2021-12-12 16:30 | disposition home health service (06) | DRG 871 ==
LOC: HO.ED 19:53 → HO.EDOVER 23:23 → HO.S3 12-07 17:07
PROVIDERS: Internal Medicine; Physician Assistant; Radiology Diagnostic Radiology; Admitting Provider Internal Medicine; Emergency Provider Emergency Medicine; Visit Provider Internal Medicine
PROC: 0F913ZZ Drainage of Right Lobe Liver, Percutaneous Approach (ICD-10-PCS; principal; 2021-12-08 10:00)
DX: A40.8 Other streptococcal sepsis (principal); K75.0 Abscess of liver; J15.9 Unspecified bacterial pneumonia; N17.9 Acute kidney failure, unspecified; I10 Essential (primary) hypertension; E86.0 Dehydration; Z20.822 Contact with and (suspected) exposure to COVID-19; Z79.899 Other long term (current) drug therapy
CPT/HCPCS: 0241U; 10009; 36415; 36573; 71045; 71275; 74176; 74183; 80048; 80061; 80076; 81001; 82565; 83605; 83690; 83735; 83880; 84484; 85025; 85027; 85379; 85610; 86704; 86706; 86709; 86803; 87040; 87071; 87073; 87077; 87186; 87205; 87340; 87635; 93005; 93306; 96361; 96365; 96366; 96367; 96375; 99152; 99285; A9585; C1729; C1751; J0456; J0696; J1885; J3370; Q9967